=== PATIENT | male | born 1945 | race Caucasian/White ===

== ENCOUNTER 2023-01-06 07:26 | Inpatient (IN) ==
--- NOTE | 2023-01-06 07:39 | Emergency Department Note ---
Impression & Plan Hyperkalemia, Left hemiparesis, Acute renal failure, High anion gap metabolic acidosis, Aspiration pneumonia ED Provider Note NAME: LAURIE VANEGAS AGE: 77 SEX: M : 1945 ARRIVES VIA: Ambulance INFORMANT: Patient, ED PROVIDER(S): Karthikeyan Tompkins MD CHIEF COMPLAINT: Change in behavior, low blood sugar, vomiting MEDICAL DECISION MAKING: Patient presents with more aggressive behavior and there was concerned about some lower blood sugar. Patient was seen within the last 24 hours. IV was established and blood work is obtained. Patient did have a CT of the abdomen pelvis lumbar spine CT head obtained. The patient did have 800 cc of urinary retention Astudillo catheter was placed urinalysis was sent. Patient's initial kidney function with a creat of 12 with potassium 6.7. The patient was ordered a repeat but the patient's potassium was treated given the patient's significant kidney dysfunction. Patient was initially ordered 500 cc bolus, albuterol treatment, 2 g of calcium, as well as 5 units of insulin IV dex trose. Patient did have 1900 out of his Astudillo catheter initially. Patient does have a white count of 14 with mild anemia hemoglobin 11. The patient's blood work does show a lower bicarb as well as increased anion gap. The patient was ordered 150 mEq of bicarb and D5 to be given at 150 cc an hour. Patient was noted to be hypocalcemic. Procalcitonin was elevated and the patient was noted to have some bibasilar opacities seen on CT abdomen pelvis. Patient was ordered Zosyn as well as a MRSA swab. I did speak the on-call hospitalist service Dr. Edwards and the patient was admitted to the medicine service CT head shows no acute issues just old infarcts. Critical Care: I have personally spent 77 minutes of critical care time in direct management of this patient. This includes bedside care, interpretation of diagnostic studies, and testing, discussion with consultants, patient, and family members, and other require inpatient management activities. This 77 minutes is in excess of all separately billable procedures. Prior /Outside records reviewed: I reviewed the patient's outpatient facesheet as well as medication list Differential diagnosis: Infection, dehydration, metabolic abnormality, hypo/hyperglycemia, electrolyte imbalance, anemia, UTI, pneumonia, thyroid dysfunction among others were considered. Diagnostics, as interpreted by me: ECG: Normal sinus rhythm, rate of 88, normal intervals, right axis deviation, T wave inversion in V2. No ST elevations. Cardiac monitoring: An order was placed for continuous cardiac monitoring. The monitor shows a rate of 87 with sinus rhythm. Patient was placed on pulse oximetry Medical decision rules: Curb 65 score Imaging studies: See below I informally reviewed the patient's CT noncontrast of the head which does not show any IV obvious ICH. 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 HPI: Patient presents from home. History may be limited given the patient's history of dementia. The patient states over the last week he has noticed some increasing discomfort when he tries to get up and out of bed this morning has some back pain above his hips as well as in his ankles. No reported falls or trauma. Nursing report states that the patient had been seen in the last 24 hours for some hypoglycemia. No reported hypoglycemic events since discharge. There was concerned the patient may have aspirated after an episode of vomiting which may have contained blood. Patient denies any head or neck pain no chest pain. The patient has had nonproductive cough per patient. Patient has had issues with going to the bathroom both urinating and defecating. Patient states he has not done much of either recently. Patient denies any lower extremity numbness. PAST MEDICAL HISTORY: Dementia, constipation, hypertension, hyperlipidemia, depression, type 2 diabetes, hearing loss, hyperaldosteronism, history of CVA, hemiplegia and hemiparesis, dysphagia, GERD, vascular dementia PAST SURGICAL HISTORY: See Below SOCIAL HISTORY: See Below HOME MEDICATIONS: I reviewed the patient's home medications which do include Seroquel, Lexapro, Depakote, Vistaril, atorvastatin, Plavix, iron supplements, Aldactone, aspirin, Protonix, Tylenol, Dulcolax, ProAir, milk of magnesia, glucagon as needed, Tylenol as needed. ALLERGIES: See Below VITALS: See Below PHYSICAL EXAMINATION: GENERAL: NAD, non-toxic. EYE EXAM: Normal conjunctiva. PERRL, no anisocoria and EOM's grossly intact w/o pain. OROPHARYNX: Moist mucus membranes, grossly normal dentition. NECK: Supple, no nuchal rigidity, no adenopathy, non-tender. No signs of meningismus. FROM of the neck with good chin to chest and neck extension. No stridor. LUNGS: Clear to auscultation. Normal chest wall mechanics. HEART: NSR, no MRG. ABDOMEN: Abdomen soft, non-tender, no masses, no rebound or guarding. BACK: No CVA TTP. SKIN: No rashes and no bruising. UPPER EXTREMITIES: Upper extremities are grossly normal. LOWER EXTREMITIES: Grossly normal, no edema. NEURO EXAM: A&O x3, cranial nerves II-XII grossly intact, normal speech, moves all 4 extremities. Past Med/Surg History Medical History Aspiration pneumonia Social History Smoking Status: Unknown if ever smoked Hx Alcohol Use: No Hx Substance Use: No Preferred Language: Lebanese Communication Ability Comment: pt has altered mental status Cotton Ball Bagger Required: No Beliefs That Will Affect Care: None Current Living Situation: [facility] Feels Safe at Home: Yes Safety Concerns: Feels Safe At This Time Assistive Devices Comment: unknown Allergies Allergies Allergy/AdvReac Type Severity Reaction Status Date / Time No Known Allergies Allergy Verified 01/06/23 08:59 Home Meds Home Medications Medication Instructions Recorded Confirmed Insta-Glucose See Rx Instructions .Route .COMPLEX 01/06/23 01/06/23 Milk Of Magnesia Susp 1200mg/15ml See Rx Instructions .Route .COMPLEX 01/06/23 01/06/23 acetaminophen 325 mg tablet 650 mg PO Q6H PRN Mild Pain (Scale 01/06/23 01/06/23 Score 1-4) acetaminophen 325 mg tablet 650 mg PO Q6H PRN elevated temp 01/06/23 01/06/23 albuterol sulfate 90 mcg/actuation 2 puff inhalation Q6H PRN 01/06/23 01/06/23 aerosol inhaler shortness of breath aspirin 81 mg tablet,delayed 81 mg PO DAILY 01/06/23 01/06/23 release atorvastatin 20 mg tablet 20 mg PO DAILY 01/06/23 01/06/23 bisacodyl 10 mg rectal suppository See Rx Instructions .Route 01/06/23 01/06/23 .COMPLEX PRN Constipation clopidogrel 75 mg tablet 75 mg PO DAILY 01/06/23 01/06/23 divalproex 125 mg tablet,delayed 125 mg PO TID 01/06/23 01/06/23 release escitalopram oxalate 10 mg tablet 10 mg PO DAILY 01/06/23 01/06/23 ferrous sulfate 325 mg (65 mg 325 mg PO QAM 01/06/23 01/06/23 iron) tablet glucagon HCl 1 mg solution for See Rx Instructions .Route .COMPLEX 01/06/23 01/06/23 injection (Glucagon (HCl) Emergency Kit) glucagon HCl 1 mg solution for See Rx Instructions .Route .COMPLEX 01/06/23 01/06/23 injection (Glucagon (HCl) Emergency Kit) hydroxyzine pamoate 25 mg capsule 50 mg PO Q24H PRN Anxiety 01/06/23 01/06/23 pantoprazole 40 mg tablet,delayed 40 mg PO BID 01/06/23 01/06/23 release quetiapine 25 mg tablet 100 mg PO HS 01/06/23 01/06/23 quetiapine 50 mg tablet 50 mg PO HS 01/06/23 01/06/23 sodium phosphates 19 gram-7 See Rx Instructions .Route .COMPLEX 01/06/23 01/06/23 gram/118 mL enema (Enema) spironolactone 25 mg tablet 25 mg PO DAILY 01/06/23 01/06/23 Results & Data (ED) Vital Signs Vital Signs - 24 hr 01/06/23 07:36 01/06/23 07:40 01/06/23 08:05 Temperature 36.6 C Temperature Source Oral Pulse Rate 85 86 Pulse Rate [Apical] Respiratory Rate 20 Respiratory Effort / Characteristics Non-Labored Respiratory Depth Normal Respiratory Pattern Regular Blood Pressure 151/80 H Blood Pressure [Right Arm] Blood Pressure Mean 103 Blood Pressure Mean [Right Arm] Pulse Oximetry 92 92 Oxygen Delivery Method Room Air Room Air Sepsis Recent Fever Within 48 Hours No Sepsis New/Unexplained Change in Mental Status No Sepsis Action Taken by Nursing No Action Required 01/06/23 08:40 01/06/23 08:55 01/06/23 10:05 Temperature Temperature Source Pulse Rate Pulse Rate [Apical] 88 83 91 H Respiratory Rate 18 20 18 Respiratory Effort / Characteristics Non-Labored Respiratory Depth Deep Deep Normal Respiratory Pattern Regular Regular Regular Blood Pressure Blood Pressure [Right Arm] 90/57 L 120/60 103/61 Blood Pressure Mean Blood Pressure Mean [Right Arm] 68 80 75 Pulse Oximetry 91 99 92 Oxygen Delivery Method Room Air Nebulizer Room Air Sepsis Recent Fever Within 48 Hours Sepsis New/Unexplained Change in Mental Status Sepsis Action Taken by [facility] Medications Current Medication List: was personally reviewed by me Laboratory Data Attestation: I reviewed the patient's lab results. 01/06/23 07:41 01/06/23 07:41 Lab Results 01/06/23 01/06/23 01/06/23 Range/Units 07:38 07:41 07:41 WBC 14.02 H (4.8-10.8) K/ul RBC 4.19 L (4.70-6.10) M/uL Hgb 11.6 L (14.0-18.0) g/dl Hct 32.9 L (42.0-52.0) % MCV 78.5 L (80.0-100.0) fL MCH 27.7 (25.0-34.0) pg MCHC 35.3 (32.0-36.0) g/dL RDW Std Deviation 45.3 (36.4-46.3) fL RDW Coeff of Edilia 15.9 H (11.5-14.5) % Plt Count 229 (130-400) K/uL MPV 10.5 (9.4-12.4) fL Immature Gran % (Auto) 0.6 % Neut % (Auto) 90.3 % Lymph % (Auto) 1.8 % Parker % (Auto) 6.9 % Eos % (Auto) 0.3 % Baso % (Auto) 0.1 % Neut # (Auto) 12.67 H (1.40-6.50) K/uL Lymph # (Auto) 0.25 L (1.20-3.40) K/uL Parker # (Auto) 0.97 H (0.11-0.59) K/uL Eos # (Auto) 0.04 (0.00-0.50) K/uL Baso # (Auto) 0.01 (0.00-0.20) K/uL Immature Gran # (Auto) 0.08 (0.01-0.20) K/uL Polychromasia 1+ Echinocytes 3+ VBG pH (7.36-7.41) VBG pCO2 (38-50) mmHg VBG pO2 mmHg VBG HCO3 mmol/L VBG O2 Saturation % VBG Base Excess mEq/L Sodium 131 L (136-145) mmol/L Potassium 6.7 H* (3.5-5.1) mmol/L Chloride 98 (98-107) mmol/L Carbon Dioxide 13 L (21-32) mmol/L Anion Gap 20 H (3-11) BUN 177 H (6-23) mg/dl Creatinine 12.39 H* (0.6-1.4) mg/dl Est Cr Clr Drug Dosing Not Reportable Est GFR ( Amer) 4.0 ml/min Est GFR (Non-Af Amer) 3.4 ml/min BUN/Creatinine Ratio 14.3 (10-20) Glucose 76 (70-99(Fasting)) mg/dl POC Glucose 84 (70-99) mg/dl Lactate (0.4-2.0) mmol/L Calcium 7.4 L (8.6-10.3) mg/dl Phosphorus (2.5-4.9) mg/dl Magnesium (1.7-2.4) mg/dl Total Bilirubin 0.3 (0.2-1.0) mg/dl AST 24 (13-39) U/L ALT 20 (7-52) U/L Alkaline Phosphatase 58 (34-104) U/L Total Protein 5.9 L (6.0-8.3) gm/dl Albumin 3.0 L (3.4-5.0) gm/dl Globulin 2.9 (2.5-4.0) gm/dl Albumin/Globulin Ratio 1.0 (0.9-2) Lipase 53 (11-82) U/L Procalcitonin (0-0.5) ng/ml Urine Color Urine Appearance (Clear) Urine pH (4.5-7.5) Ur Specific [place] (1.000-1.030) Urine Protein (Negative) Urine Glucose (UA) (Negative) Urine Ketones (Negative) Urine Blood (Negative) Urine Nitrite (Negative) Urine Bilirubin (Negative) Urine Urobilinogen (Negative) Ur Leukocyte Esterase (Negative) Urine WBC (Auto) (0-5) /hpf Urine RBC (Auto) (0-4) /hpf U Hyaline Cast (Auto) (0-5) /lpf U Epithel Cells (Auto) (0-5) /lpf Urine Bacteria (Auto) (Negative) Nasal Screen MRSA (PCR) (Negative) Adenovirus (PCR) (NotDetected) B. pertussis DNA (PCR) (NotDetected) B.parapertussis DNA PCR (NotDetected) C. pneumoniae DNA (PCR) (NotDetected) Coronavirus OC43 (PCR) (NotDetected) Coronavirus HKU1 (PCR) (NotDetected) Coronavirus 229E (PCR) (NotDetected) SARS-CoV-2 (PCR) (NotDetected) Coronavirus NL63 (PCR) (NotDetected) Human Metapneumovir PCR (NotDetected) Influenza Type A (PCR) (NotDetected) Influenza Type B (PCR) (NotDetected) M. pneumoniae (PCR) (NotDetected) Parainfluenza 1 (PCR) (NotDetected) Parainfluenza 2 (PCR) (NotDetected) Parainfluenza 3 (PCR) (NotDetected) Parainfluenza 4 (PCR) (NotDetected) RSV (PCR) (NotDetected) Entero/Rhino (PCR) (NotDetected) 01/06/23 01/06/23 01/06/23 Range/Units 07:41 07:41 07:41 WBC (4.8-10.8) K/ul RBC (4.70-6.10) M/uL Hgb (14.0-18.0) g/dl Hct (42.0-52.0) % MCV (80.0-100.0) fL MCH (25.0-34.0) pg MCHC (32.0-36.0) g/dL RDW Std Deviation (36.4-46.3) fL RDW Coeff of Edilia (11.5-14.5) % Plt Count (130-400) K/uL MPV (9.4-12.4) fL Immature Gran % (Auto) % Neut % (Auto) % Lymph % (Auto) % Parker % (Auto) % Eos % (Auto) % Baso % (Auto) % Neut # (Auto) (1.40-6.50) K/uL Lymph # (Auto) (1.20-3.40) K/uL Parker # (Auto) (0.11-0.59) K/uL Eos # (Auto) (0.00-0.50) K/uL Baso # (Auto) (0.00-0.20) K/uL Immature Gran # (Auto) (0.01-0.20) K/uL Polychromasia Echinocytes VBG pH (7.36-7.41) VBG pCO2 (38-50) mmHg VBG pO2 mmHg VBG HCO3 mmol/L VBG O2 Saturation % VBG Base Excess mEq/L Sodium 131 L (136-145) mmol/L Potassium TNP (3.5-5.1) mmol/L Chloride 98 (98-107) mmol/L Carbon Dioxide 13 L (21-32) mmol/L Anion Gap 20 H (3-11) BUN 179 H (6-23) mg/dl Creatinine 12.02 H* D (0.6-1.4) mg/dl Est Cr Clr Drug Dosing Not Reportable Est GFR ( Amer) 4.1 ml/min Est GFR (Non-Af Amer) 3.6 ml/min BUN/Creatinine Ratio 14.9 (10-20) Glucose 77 (70-99(Fasting)) mg/dl POC Glucose (70-99) mg/dl Lactate (0.4-2.0) mmol/L Calcium 7.4 L (8.6-10.3) mg/dl Phosphorus (2.5-4.9) mg/dl Magnesium (1.7-2.4) mg/dl Total Bilirubin 0.3 (0.2-1.0) mg/dl AST TNP (13-39) U/L ALT 21 (7-52) U/L Alkaline Phosphatase 55 (34-104) U/L Total Protein 6.0 (6.0-8.3) gm/dl Albumin 2.9 L (3.4-5.0) gm/dl Globulin 3.1 (2.5-4.0) gm/dl Albumin/Globulin Ratio 0.9 (0.9-2) Lipase (11-82) U/L Procalcitonin 5.56 H (0-0.5) ng/ml Urine Color Urine Appearance (Clear) Urine pH (4.5-7.5) Ur Specific [place] (1.000-1.030) Urine Protein (Negative) Urine Glucose (UA) (Negative) Urine Ketones (Negative) Urine Blood (Negative) Urine Nitrite (Negative) Urine Bilirubin (Negative) Urine Urobilinogen (Negative) Ur Leukocyte Esterase (Negative) Urine WBC (Auto) (0-5) /hpf Urine RBC (Auto) (0-4) /hpf U Hyaline Cast (Auto) (0-5) /lpf U Epithel Cells (Auto) (0-5) /lpf Urine Bacteria (Auto) (Negative) Nasal Screen MRSA (PCR) (Negative) Adenovirus (PCR) Not Detected (NotDetected) B. pertussis DNA (PCR) Not Detected (NotDetected) B.parapertussis DNA PCR Not Detected (NotDetected) C. pneumoniae DNA (PCR) Not Detected (NotDetected) Coronavirus OC43 (PCR) Not Detected (NotDetected) Coronavirus HKU1 (PCR) Not Detected (NotDetected) Coronavirus 229E (PCR) Not Detected (NotDetected) SARS-CoV-2 (PCR) Not Detected (NotDetected) Coronavirus NL63 (PCR) Not Detected (NotDetected) Human Metapneumovir PCR Not Detected (NotDetected) Influenza Type A (PCR) Not Detected (NotDetected) Influenza Type B (PCR) Not Detected (NotDetected) M. pneumoniae (PCR) Not Detected (NotDetected) Parainfluenza 1 (PCR) Not Detected (NotDetected) Parainfluenza 2 (PCR) Not Detected (NotDetected) Parainfluenza 3 (PCR) Not Detected (NotDetected) Parainfluenza 4 (PCR) Not Detected (NotDetected) RSV (PCR) Not Detected (NotDetected) Entero/Rhino (PCR) Not Detected (NotDetected) 01/06/23 01/06/23 01/06/23 Range/Units 08:04 10:03 10:23 WBC (4.8-10.8) K/ul RBC (4.70-6.10) M/uL Hgb (14.0-18.0) g/dl Hct (42.0-52.0) % MCV (80.0-100.0) fL MCH (25.0-34.0) pg MCHC (32.0-36.0) g/dL RDW Std Deviation (36.4-46.3) fL RDW Coeff of Edilia (11.5-14.5) % Plt Count (130-400) K/uL MPV (9.4-12.4) fL Immature Gran % (Auto) % Neut % (Auto) % Lymph % (Auto) % Parker % (Auto) % Eos % (Auto) % Baso % (Auto) % Neut # (Auto) (1.40-6.50) K/uL Lymph # (Auto) (1.20-3.40) K/uL Parker # (Auto) (0.11-0.59) K/uL Eos # (Auto) (0.00-0.50) K/uL Baso # (Auto) (0.00-0.20) K/uL Immature Gran # (Auto) (0.01-0.20) K/uL Polychromasia Echinocytes VBG pH (7.36-7.41) VBG pCO2 (38-50) mmHg VBG pO2 mmHg VBG HCO3 mmol/L VBG O2 Saturation % VBG Base Excess mEq/L Sodium (136-145) mmol/L Potassium (3.5-5.1) mmol/L Chloride (98-107) mmol/L Carbon Dioxide (21-32) mmol/L Anion Gap (3-11) BUN (6-23) mg/dl Creatinine (0.6-1.4) mg/dl Est Cr Clr Drug Dosing Est GFR ( Amer) ml/min Est GFR (Non-Af Amer) ml/min BUN/Creatinine Ratio (10-20) Glucose (70-99(Fasting)) mg/dl POC Glucose 82 (70-99) mg/dl Lactate (0.4-2.0) mmol/L Calcium (8.6-10.3) mg/dl Phosphorus (2.5-4.9) mg/dl Magnesium (1.7-2.4) mg/dl Total Bilirubin (0.2-1.0) mg/dl AST (13-39) U/L ALT (7-52) U/L Alkaline Phosphatase (34-104) U/L Total Protein (6.0-8.3) gm/dl Albumin (3.4-5.0) gm/dl Globulin (2.5-4.0) gm/dl Albumin/Globulin Ratio (0.9-2) Lipase (11-82) U/L Procalcitonin (0-0.5) ng/ml Urine Color Yellow Urine Appearance Clear (Clear) Urine pH 5.5 (4.5-7.5) Ur Specific [place] 1.014 (1.000-1.030) Urine Protein Negative (Negative) Urine Glucose (UA) Negative (Negative) Urine Ketones Negative (Negative) Urine Blood 3+ H (Negative) Urine Nitrite Negative (Negative) Urine Bilirubin Negative (Negative) Urine Urobilinogen Negative (Negative) Ur Leukocyte Esterase Negative (Negative) Urine WBC (Auto) 0 (0-5) /hpf Urine RBC (Auto) 10-30 H (0-4) /hpf U Hyaline Cast (Auto) 0 (0-5) /lpf U Epithel Cells (Auto) 0-5 (0-5) /lpf Urine Bacteria (Auto) Negative (Negative) Nasal Screen MRSA (PCR) Positive A (Negative) Adenovirus (PCR) (NotDetected) B. pertussis DNA (PCR) (NotDetected) B.parapertussis DNA PCR (NotDetected) C. pneumoniae DNA (PCR) (NotDetected) Coronavirus OC43 (PCR) (NotDetected) Coronavirus HKU1 (PCR) (NotDetected) Coronavirus 229E (PCR) (NotDetected) SARS-CoV-2 (PCR) (NotDetected) Coronavirus NL63 (PCR) (NotDetected) Human Metapneumovir PCR (NotDetected) Influenza Type A (PCR) (NotDetected) Influenza Type B (PCR) (NotDetected) M. pneumoniae (PCR) (NotDetected) Parainfluenza 1 (PCR) (NotDetected) Parainfluenza 2 (PCR) (NotDetected) Parainfluenza 3 (PCR) (NotDetected) Parainfluenza 4 (PCR) (NotDetected) RSV (PCR) (NotDetected) Entero/Rhino (PCR) (NotDetected) 01/06/23 01/06/23 01/06/23 Range/Units 11:10 11:10 11:10 WBC (4.8-10.8) K/ul RBC (4.70-6.10) M/uL Hgb (14.0-18.0) g/dl Hct (42.0-52.0) % MCV (80.0-100.0) fL MCH (25.0-34.0) pg MCHC (32.0-36.0) g/dL RDW Std Deviation (36.4-46.3) fL RDW Coeff of Edilia (11.5-14.5) % Plt Count (130-400) K/uL MPV (9.4-12.4) fL Immature Gran % (Auto) % Neut % (Auto) % Lymph % (Auto) % Parker % (Auto) % Eos % (Auto) % Baso % (Auto) % Neut # (Auto) (1.40-6.50) K/uL Lymph # (Auto) (1.20-3.40) K/uL Parker # (Auto) (0.11-0.59) K/uL Eos # (Auto) (0.00-0.50) K/uL Baso # (Auto) (0.00-0.20) K/uL Immature Gran # (Auto) (0.01-0.20) K/uL Polychromasia Echinocytes VBG pH 7.22 L (7.36-7.41) VBG pCO2 39 (38-50) mmHg VBG pO2 38 mmHg VBG HCO3 16 mmol/L VBG O2 Saturation < 60.0 % VBG Base Excess -11.0 mEq/L Sodium 134 L (136-145) mmol/L Potassium Cancelled TNP (3.5-5.1) mmol/L Chloride 102 (98-107) mmol/L Carbon Dioxide 16 L (21-32) mmol/L Anion Gap 16 H (3-11) BUN 163 H (6-23) mg/dl Creatinine 10.05 H* D (0.6-1.4) mg/dl Est Cr Clr Drug Dosing Not Reportable Est GFR ( Amer) 5.1 ml/min Est GFR (Non-Af Amer) 4.4 ml/min BUN/Creatinine Ratio 16.2 (10-20) Glucose 88 (70-99(Fasting)) mg/dl POC Glucose (70-99) mg/dl Lactate (0.4-2.0) mmol/L Calcium 7.7 L (8.6-10.3) mg/dl Phosphorus 6.4 H (2.5-4.9) mg/dl Magnesium 2.1 (1.7-2.4) mg/dl Total Bilirubin 0.4 (0.2-1.0) mg/dl AST Cancelled TNP (13-39) U/L ALT 20 (7-52) U/L Alkaline Phosphatase 57 (34-104) U/L Total Protein 5.4 L (6.0-8.3) gm/dl Albumin 2.8 L (3.4-5.0) gm/dl Globulin 2.6 (2.5-4.0) gm/dl Albumin/Globulin Ratio 1.1 (0.9-2) Lipase (11-82) U/L Procalcitonin (0-0.5) ng/ml Urine Color Urine Appearance (Clear) Urine pH (4.5-7.5) Ur Specific [place] (1.000-1.030) Urine Protein (Negative) Urine Glucose (UA) (Negative) Urine Ketones (Negative) Urine Blood (Negative) Urine Nitrite (Negative) Urine Bilirubin (Negative) Urine Urobilinogen (Negative) Ur Leukocyte Esterase (Negative) Urine WBC (Auto) (0-5) /hpf Urine RBC (Auto) (0-4) /hpf U Hyaline Cast (Auto) (0-5) /lpf U Epithel Cells (Auto) (0-5) /lpf Urine Bacteria (Auto) (Negative) Nasal Screen MRSA (PCR) (Negative) Adenovirus (PCR) (NotDetected) B. pertussis DNA (PCR) (NotDetected) B.parapertussis DNA PCR (NotDetected) C. pneumoniae DNA (PCR) (NotDetected) Coronavirus OC43 (PCR) (NotDetected) Coronavirus HKU1 (PCR) (NotDetected) Coronavirus 229E (PCR) (NotDetected) SARS-CoV-2 (PCR) (NotDetected) Coronavirus NL63 (PCR) (NotDetected) Human Metapneumovir PCR (NotDetected) Influenza Type A (PCR) (NotDetected) Influenza Type B (PCR) (NotDetected) M. pneumoniae (PCR) (NotDetected) Parainfluenza 1 (PCR) (NotDetected) Parainfluenza 2 (PCR) (NotDetected) Parainfluenza 3 (PCR) (NotDetected) Parainfluenza 4 (PCR) (NotDetected) RSV (PCR) (NotDetected) Entero/Rhino (PCR) (NotDetected) 01/06/23 Range/Units 11:10 WBC (4.8-10.8) K/ul RBC (4.70-6.10) M/uL Hgb (14.0-18.0) g/dl Hct (42.0-52.0) % MCV (80.0-100.0) fL MCH (25.0-34.0) pg MCHC (32.0-36.0) g/dL RDW Std Deviation (36.4-46.3) fL RDW Coeff of Edilia (11.5-14.5) % Plt Count (130-400) K/uL MPV (9.4-12.4) fL Immature Gran % (Auto) % Neut % (Auto) % Lymph % (Auto) % Parker % (Auto) % Eos % (Auto) % Baso % (Auto) % Neut # (Auto) (1.40-6.50) K/uL Lymph # (Auto) (1.20-3.40) K/uL Parker # (Auto) (0.11-0.59) K/uL Eos # (Auto) (0.00-0.50) K/uL Baso # (Auto) (0.00-0.20) K/uL Immature Gran # (Auto) (0.01-0.20) K/uL Polychromasia Echinocytes VBG pH (7.36-7.41) VBG pCO2 (38-50) mmHg VBG pO2 mmHg VBG HCO3 mmol/L VBG O2 Saturation % VBG Base Excess mEq/L Sodium (136-145) mmol/L Potassium (3.5-5.1) mmol/L Chloride (98-107) mmol/L Carbon Dioxide (21-32) mmol/L Anion Gap (3-11) BUN (6-23) mg/dl Creatinine (0.6-1.4) mg/dl Est Cr Clr Drug Dosing Est GFR ( Amer) ml/min Est GFR (Non-Af Amer) ml/min BUN/Creatinine Ratio (10-20) Glucose (70-99(Fasting)) mg/dl POC Glucose (70-99) mg/dl Lactate 2.3 H* (0.4-2.0) mmol/L Calcium (8.6-10.3) mg/dl Phosphorus (2.5-4.9) mg/dl Magnesium (1.7-2.4) mg/dl Total Bilirubin (0.2-1.0) mg/dl AST (13-39) U/L ALT (7-52) U/L Alkaline Phosphatase (34-104) U/L Total Protein (6.0-8.3) gm/dl Albumin (3.4-5.0) gm/dl Globulin (2.5-4.0) gm/dl Albumin/Globulin Ratio (0.9-2) Lipase (11-82) U/L Procalcitonin (0-0.5) ng/ml Urine Color Urine Appearance (Clear) Urine pH (4.5-7.5) Ur Specific [place] (1.000-1.030) Urine Protein (Negative) Urine Glucose (UA) (Negative) Urine Ketones (Negative) Urine Blood (Negative) Urine Nitrite (Negative) Urine Bilirubin (Negative) Urine Urobilinogen (Negative) Ur Leukocyte Esterase (Negative) Urine WBC (Auto) (0-5) /hpf Urine RBC (Auto) (0-4) /hpf U Hyaline Cast (Auto) (0-5) /lpf U Epithel Cells (Auto) (0-5) /lpf Urine Bacteria (Auto) (Negative) Nasal Screen MRSA (PCR) (Negative) Adenovirus (PCR) (NotDetected) B. pertussis DNA (PCR) (NotDetected) B.parapertussis DNA PCR (NotDetected) C. pneumoniae DNA (PCR) (NotDetected) Coronavirus OC43 (PCR) (NotDetected) Coronavirus HKU1 (PCR) (NotDetected) Coronavirus 229E (PCR) (NotDetected) SARS-CoV-2 (PCR) (NotDetected) Coronavirus NL63 (PCR) (NotDetected) Human Metapneumovir PCR (NotDetected) Influenza Type A (PCR) (NotDetected) Influenza Type B (PCR) (NotDetected) M. pneumoniae (PCR) (NotDetected) Parainfluenza 1 (PCR) (NotDetected) Parainfluenza 2 (PCR) (NotDetected) Parainfluenza 3 (PCR) (NotDetected) Parainfluenza 4 (PCR) (NotDetected) RSV (PCR) (NotDetected) Entero/Rhino (PCR) (NotDetected) Administered Medications Albuterol (Albuterol 0.5% Neb Soln 2.5 Mg/0.5 Ml Vial) 2.5 mg NEB Q6R [facility]; Protocol Stop: 02/05/23 12:59 Last Admin: 01/06/23 12:46 Dose: 2.5 mg Documented By: MIROSLAVA Divalproex Sodium (Divalproex Delay Release 125 Mg Tabec) 125 mg PO TID [facility] Stop: 02/05/23 13:59 Last Admin: 01/06/23 14:15 Dose: 125 mg Documented By: GRANT Sodium Bicarbonate 150 meq/ (Dextrose) 1,150 mls @ 150 mls/hr IV .[id number] [facility] Stop: 02/05/23 10:14 Last Admin: 01/06/23 11:08 Dose: 150 mls/hr Documented By: GRANT Vancomycin HCl 1,500 mg/ (Sodium Chloride) 530 mls @ 200 mls/hr IV NOW ONE Stop: 01/06/23 15:23 Last Admin: 01/06/23 13:12 Dose: 200 mls/hr Documented By: DE Insulin Aspart (Insulin Aspart Per Unit Charge) 0 units SC Q4 [facility] Stop: 02/05/23 11:29 Last Admin: 01/06/23 12:20 Dose: Not Given Documented By: GRANT Sodium Zirconium Cyclosilicate (Sodium Zirconium Cyclosilicate 10 Gm Packet) 10 gm PO TID [facility] Stop: 01/07/23 21:01 Last Admin: 01/06/23 14:15 Dose: 10 gm Documented By: Admin: 01/06/23 12:23 Dose: 10 gm Documented By: GRANT Discontinued Medications Albuterol (Albuterol 0.083% Nebu Soln 3 Ml Vial) 2.5 mg NEB NOW STA; Protocol Stop: 01/06/23 08:18 Last Admin: 01/06/23 08:43 Dose: 2.5 mg Documented By: GRANT Aspirin (Aspirin 81 Mg Ectab) 81 mg PO NOW STA Stop: 01/06/23 11:59 Last Admin: 01/06/23 12:23 Dose: 81 mg Documented By: GRANT Dextrose (Dextrose 50% 50 Ml Syringe) 50 ml IV NOW ONE Stop: 01/06/23 08:18 Last Admin: 01/06/23 08:43 Dose: 50 ml Documented By: GRANT Acetaminophen (Ofirmev) 1,000 mg in 100 mls @ 400 mls/hr IV NOW STA Stop: 01/06/23 07:59 Last Infusion: 01/06/23 08:44 Dose: 0 mls/hr Documented By: Admin: 01/06/23 08:07 Dose: 400 mls/hr Documented By: GRANT Calcium Gluconate () 1,000 mg in 60 mls @ 240 mls/hr IV Q15M ALEXIA Stop: 01/06/23 08:59 Last Infusion: 01/06/23 09:59 Dose: 0 mls/hr Documented By: Admin: 01/06/23 09:00 Dose: 240 mls/hr Documented By: Infusion: 01/06/23 08:58 Dose: 240 mls/hr Documented By: Admin: 01/06/23 08:43 Dose: 240 mls/hr Documented By: GRANT Sodium Chloride (Nss 1000ml) 500 mls @ 999 mls/hr IV .Q31M ONE Stop: 01/06/23 08:47 Last Infusion: 01/06/23 10:00 Dose: 0 mls/hr Documented By: Admin: 01/06/23 08:41 Dose: 999 mls/hr Documented By: GRANT Sodium Chloride (Nss 1000ml) 500 mls @ 999 mls/hr IV .Q31M ONE Stop: 01/06/23 09:37 Last Infusion: 01/06/23 10:53 Dose: 0 mls/hr Documented By: Admin: 01/06/23 10:08 Dose: 999 mls/hr Documented By: GRANT Piperacillin Sod/Tazobactam Sod (Zosyn) 4.5 gm in 120 mls @ 240 mls/hr IV NOW ONE Stop: 01/06/23 10:00 Last Infusion: 01/06/23 10:53 Dose: 0 mls/hr Documented By: Admin: 01/06/23 10:21 Dose: 240 mls/hr Documented By: GRANT Pantoprazole Sodium 40 mg/ (Syringe) 10 mls @ 5 mls/min IV NOW ONE Stop: 01/06/23 11:42 Last Admin: 01/06/23 12:23 Dose: 5 mls/min Documented By: GRANT Insulin Human Regular (Novolin-R Insulin Per Unit Charge) 5 units IV NOW STA Stop: 01/06/23 08:18 Last Admin: 01/06/23 08:50 Dose: 5 units Documented By: GRANT Co-signed By: CORNELIA Miscellaneous (Stat Iv) 1 each N/A NOW STA Stop: 01/06/23 10:08 Last Admin: 01/06/23 10:11 Dose: 1 each Documented By: GRANT Ondansetron HCl (Ondansetron Inj 2 Mg/Ml 2 Ml Vial) 4 mg IV NOW STA Stop: 01/06/23 07:46 Last Admin: 01/06/23 08:07 Dose: 4 mg Documented By: GRANT Imaging Data Radiologist's Impression: Chest X-Ray 01/06/23 07:45 XR chest 1V portable HISTORY: cough COMPARISON: None. FINDINGS: There are low lung volumes. No pneumothorax. No pleural effusions. The cardiac silhouette is top normal in size. The right lung is essentially clear. There are patchy left basilar densities noted. IMPRESSION: Patchy left basilar densities which may represent atelectasis or pneumonia. This will be better appreciated on the same day abdomen and pelvis CT. ACT 112: Negative or not required by law. Electronically signed by: Marcus Cox M.D. 01/06/2023 8:[address] 01/06/23 07:[address] DOSE: HISTORY: back pain TECHNIQUE: Multiaxial CT images of the lumbar spine were performed and reformatted in the sagittal and coronal plane without the use of contrast. A dose lowering technique was utilized adhering to the principles of ALARA. COMPARISON: None. FINDINGS: No fracture or subluxation within the lumbar spine. There is mild dextroscoliosis. There is moderate to severe disc space narrowing throughout the lumbar spine most pronounced at the L4-5 level. Moderate facet degenerative changes within the lower lumbar spine. Visualized sacrum is intact. No high- grade central canal stenosis by CT technique. Paravertebral soft tissues are unremarkable. IMPRESSION: No fracture or subluxation within the lumbar spine. ACT 112: Negative or not required by law. Electronically signed by: Marcus Cox M.D. 01/06/2023 11:[address] 01/06/23 08:[address] DOSE: HISTORY: Altered mental status. agitation TECHNIQUE: Multiaxial CT images of the head were performed without the use of intravenous contrast. Automated exposure control was utilized for this study. A dose lowering technique was utilized adhering to the principles of ALARA. Comparison: None. Findings: The paranasal sinuses and mastoid air cells are clear. The calvarium and skull base are intact. Mild motion artifact. 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 Additional focal areas of encephalitis within the occipital lobes consistent with old infarcts. There are old lacunar infarcts within the cerebellar hemispheres, right thalamus, left basal ganglia. No definite acute infarct is identified. No mass, hematoma, midline shift. Mild atrophy and microvascular ischemic changes are noted. 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 No definite acute intracranial abnormality. ACT 112: Negative or not required by law. Electronically signed by: Marcus Cox M.D. 01/06/2023 9:42 AM Abdomen/Pelvis CT 01/06/23 08:[address] WITHOUT CONTRAST CT DOSE: 1549.16 mGy.cm HISTORY: Abdominal distention. TECHNIQUE: Multiaxial CT images of the abdomen and pelvis were performed without contrast. A dose lowering technique was utilized adhering to the principles of ALARA. COMPARISON STUDY: None. FINDINGS: Patchy areas of airspace consolidation seen within the bilateral lower lobes and a few small groundglass airspace opacities within the right middle lobe. This is most pronounced within the left lower lobe. There is mild motion artifact. There are small bilateral pleural effusions. There is a small hiatus hernia with thickening of the distal esophagus. No pneumoperitoneum. No pneumat osis. No acute fractures identified. Coronary artery calcifications are noted. Bilateral gynecomastia is present. Small fat-containing umbilical hernia. Mild body wall edema. Slight asymmetric thickening within the left iliacus muscle best seen image 231. This is likely the normal musculature. A small intramuscular hematoma is considered less likely but not entirely excluded. The stomach is mildly distended and filled with gas and fluid. Pneumobilia is present with gas in the nondistended gallbladder. The unenhanced liver, spleen, pancreas, and adrenal glands are unremarkable. No renal or ureteral stones. Mild fullness within the bilateral renal collecting systems without carlos hydronephrosis. There is mild bilateral perinephric edema. Calcified plaque within the normal caliber abdominal aorta. No retroperitoneal or pelvic lymphadenopathy. Trace ascites noted within the pelvis. The bladder is decompressed by a Astudillo catheter. The prostate gland is enlarged. There is suboptimal evaluation for bowel pathology due to the lack of intravenous and oral contrast. However, there is no definite bowel wall thickening or obstruction. Normal appendix. Colonic diverticulosis. No evidence for acute diverticulitis. IMPRESSION: 1. Multifocal bilateral airspace opacities with small bilateral pleural effusions. This likely represents a pneumonia and could be due to aspiration. 2. Small hiatus hernia with thickening of the distal esophagus suggestive of a nonspecific esophagitis. 3. The stomach is mildly distended. No evidence for gastric outlet obstruction. 4. No definite bowel wall thickening or obstruction. 5. Mild fullness within the bilateral renal collecting system without carlos hydr onephrosis. The bladder is decompressed by a Astudillo catheter. 6. Mild asymmetric thickening of the left iliacus muscle and comparison to the right. This likely represents the normal musculature. A small intramuscular hematoma is considered less likely but not entirely excluded. 7. Mild edematous change. 8. Additional findings as described above. ACT 112: Negative or not required by law. Electronically signed by: Marcus Cox M.D. 01/06/2023 11:00 AM Discharge Plan Visit Data Chief Complaint: Vomiting ED Provider: Karthikeyan Tompkins Discharge Problem: Hyperkalemia, Left hemiparesis, Acute renal failure, High anion gap metabolic acidosis, Aspiration pneumonia Patient Disposition: Against Medical Advice Discharge Instructions Interventions: ED Discharge Assessment Last Done: 01/06/23 12:23
[2023-01-06] MEDS ORDERED: ONDANSETRON INJ 2 MG/ML 2 ML VIAL IV STA (07:45)
[2023-01-06] MEDS ORDERED: ACETAMINOPHEN 1,000 MG/100 ML VIAL IV STA (07:45)
--- NOTE | 2023-01-06 08:14 | XRay Report ---
XR chest 1V portable HISTORY: cough COMPARISON: None. FINDINGS: There are low lung volumes. No pneumothorax. No pleural effusions. The cardiac silhouette i s top normal in size. The right lung is essentially clear. There are patchy left basilar densities no claritza. IMPRESSION: Patchy left basilar densities which may represent atelectasis or pneumonia. This will be better appre ciated on the same day abdomen and pelvis CT. ACT 112: Negative or not required by law. Electronically signed by: Marcus Cox M.D. 01/06/2023 8:13 AM
[2023-01-06 08:17] LABS: Alanine Aminotransferase 20 U/L (7-52); Alkaline Phosphatase 58 U/L (34-104); Anion Gap 20 (3-11); Aspartate Aminotransferase 24 U/L (13-39); Bilirubin,Total 0.3 mg/dl (0.2-1.0); Calcium 7.4 mg/dl (8.6-10.3); Carbon Dioxide 13 mmol/L (21-32); Chloride 98 mmol/L (98-107); Est GFR (Non-African American) 3.4 ml/min; Globulin 2.9 gm/dl (2.5-4.0); Glucose 76 mg/dl (70-99(Fasting)); Lipase 53 U/L (11-82); Potassium 6.7 mmol/L (3.5-5.1); Sodium 131 mmol/L (136-145); Total Protein 5.9 gm/dl (6.0-8.3)
[2023-01-06] MEDS ORDERED: NovoLIN-R INSULIN PER UNIT CHARGE IV STA (08:17)
[2023-01-06] MEDS ORDERED: DEXTROSE 50% 50 ML SYRINGE IV ONE (08:17)
[2023-01-06] MEDS ORDERED: SODIUM CHLORIDE 0.9% 500 ML IV ONE ×2 (08:17→09:07)
[2023-01-06] MEDS ORDERED: ALBUTEROL 0.083% NEBU SOLN 3 ML VIAL NEB STA (08:17)
[2023-01-06 08:21] LABS: Hematocrit (blood only) 32.9 % (42.0-52.0); Hemoglobin 11.6 g/dl (14.0-18.0); Mean Corpuscular Hemoglobin 27.7 pg (25.0-34.0); Mean Corpuscular Hgb Conc 35.3 g/dL (32.0-36.0); Mean Corpuscular Volume 78.5 fL (80.0-100.0); Mean Platelet Volume 10.5 fL (9.4-12.4); Platelet Count 229 K/uL (130-400); RDW Coefficient of Variation 15.9 % (11.5-14.5); RDW Standard Deviation 45.3 fL (36.4-46.3); Red Blood Count 4.19 M/uL (4.70-6.10); White Blood Count 14.02 K/ul (4.8-10.8)
[2023-01-06 08:23] LABS: Appearance Urine Clear (Clear); Bacteria Urine Automated Negative (Negative); Bilirubin Urine Negative (Negative); Blood Urine 3+ (Negative); Cast Urine Automated 0 /lpf (0-5); Color Urine Yellow; Epithelial Cell Urine Auto 0-5 /lpf (0-5); Glucose Urine UA Negative (Negative); Ketones Urine Negative (Negative); Leukocyte Esterase Urine Negative (Negative); Nitrite Urine Negative (Negative); Protein Urine Negative (Negative); Specific Gravity Urine 1.014 (1.000-1.030); Urobilinogen Urine Negative (Negative); WBC Urine Automated 0 /hpf (0-5); pH Urine 5.5 (4.5-7.5)
[2023-01-06 08:34] LABS: BUN Creatinine Ratio 14.3 (10-20); Blood Urea Nitrogen 177 mg/dl (6-23)
[2023-01-06] MEDS: CALCIUM GLUCONATE 1,000 MG/60 ML BAG IV SCH ×2 (08:43→09:00)
[2023-01-06 08:50] LABS: Alanine Aminotransferase 21 U/L (7-52); Albumin Globulin Ratio 0.9 (0.9-2); Albumin Level 2.9 gm/dl (3.4-5.0); Alkaline Phosphatase 55 U/L (34-104); Anion Gap 20 (3-11); Bilirubin,Total 0.3 mg/dl (0.2-1.0); Calcium 7.4 mg/dl (8.6-10.3); Carbon Dioxide 13 mmol/L (21-32); Chloride 98 mmol/L (98-107); Est GFR (African American) 4.1 ml/min; Est GFR (Non-African American) 3.6 ml/min; Globulin 3.1 gm/dl (2.5-4.0); Glucose 77 mg/dl (70-99(Fasting)); Sodium 131 mmol/L (136-145)
[2023-01-06 08:56] LABS: Basophils # (auto) 0.01 K/uL (0.00-0.20); Basophils % (auto) 0.1 %; Echinocytes 3+; Eosinophils # (auto) 0.04 K/uL (0.00-0.50); Eosinophils % (auto) 0.3 %; Immature Granulocytes # (auto) 0.08 K/uL (0.01-0.20); Immature Granulocytes % (auto) 0.6 %; Lymphocytes # (auto) 0.25 K/uL (1.20-3.40); Lymphocytes % (auto) 1.8 %; Monocytes # (auto) 0.97 K/uL (0.11-0.59); Monocytes % (auto) 6.9 %; Neutrophils # (auto) 12.67 K/uL (1.40-6.50); Neutrophils % (auto) 90.3 %; Polychromasia 1+
[2023-01-06 09:14] LABS: Adenovirus PCR Not Detected (NotDetected); Bordetella parapertussis PCR Not Detected (NotDetected); Bordetella pertussis PCR Not Detected (NotDetected); Chlamydia pneumoniae PCR Not Detected (NotDetected); Coronavirus 229E PCR Not Detected (NotDetected); Coronavirus CoV-2 (COVID19)PCR Not Detected (NotDetected); Coronavirus HKU1 PCR Not Detected (NotDetected); Coronavirus NL63 PCR Not Detected (NotDetected); Coronavirus OC43PCR Not Detected (NotDetected); Human Metapneumovirus PCR Not Detected (NotDetected); Influenza A PCR Not Detected (NotDetected); Influenza B PCR Not Detected (NotDetected); Mycoplasma pneumoniae PCR Not Detected (NotDetected); Parainfluenza Virus 1 PCR Not Detected (NotDetected); Parainfluenza Virus 2 PCR Not Detected (NotDetected); Parainfluenza Virus 3 PCR Not Detected (NotDetected); Parainfluenza Virus 4 PCR Not Detected (NotDetected); Respiratory Syncytial VirusPCR Not Detected (NotDetected); Rhinovirus/Enterovirus PCR Not Detected (NotDetected)
[2023-01-06] MEDS ORDERED: PIPERACILLIN/TAZOBACTAM 4.5 GM/120 ML BAG IV ONE (09:31)
--- NOTE | 2023-01-06 09:44 | CT Scan Report ---
HEAD CT NONCONTRAST CT DOSE: HISTORY: Altered mental status. agitation TECHNIQUE: Multiaxial CT images of the head were performed without the use of intravenous contrast. A utomated exposure control was utilized for this study. A dose lowering technique was utilized adheri ng to the principles of ALARA. Comparison: None. Findings: The paranasal sinuses and mastoid air cells are clear. The calvarium and skull base are int act. Mild motion artifact. Large area of encephalomalacia within the right cerebral hemisphere consis tent with an old MCA territory infarct. Additional focal areas of encephalitis within the occipital l obes consistent with old infarcts. There are old lacunar infarcts within the cerebellar hemispheres, right thalamus, left basal ganglia. No definite acute infarct is identified. No mass, hematoma, midli ne shift. Mild atrophy and microvascular ischemic changes are noted. 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 No definite acute intracranial abnormality. ACT 112: Negative or not required by law. Electronically signed by: Marcus Cox M.D. 01/06/2023 9:42 AM
[2023-01-06 09:58] LABS: BUN Creatinine Ratio 14.9 (10-20); Blood Urea Nitrogen 179 mg/dl (6-23)
[2023-01-06] MEDS ORDERED: STAT IV STA (10:07)
--- NOTE | 2023-01-06 10:20 | History & Physical Report ---
Date of Service January 06, 2023 Assessment & Plan (1) Altered mental status: Plan: -Admit to the PCU on tele/pulse oximetry -Patient is currently stable -At this time the etiology of the patient's AMS appears most consistent with obstructive uropathy as his cr is currently 12, patient has had approximately 1900 mL of urine output since kaba placement in the ED -Cannot rule out possible infection at this time with recent vomiting and possible aspiration, leukocytosis, and elevated procal -CT of the head was negative for acute findings, CT of the abd/pelvis without other signs of obstruction S/P kaba cath placement, dose show signs consistent with aspiration pneumonia -Leukocytosis and elevated procal could be falsely elevated due to acute renal failure -Patient has been adamant that he does not want recurrent labs draws/needles/procedures at this time. He does have a hx of dementia -Spoke to POA/Niece, patient would want dialysis if needed if distress from procedures/lab draws can be controlled -Continue kaba catheter and monitor intake/output q6h for now -S/P one dose of Zosyn in the ED, will continue Zosyn at this time to cover for possible infection/aspiration pneumonia -Hold chemical DVT PPX for now (2) Acute renal failure: Plan: -Cr currently 12 (no previous baseline), BUN of 179, K+ of 6.7 with sodium of 131 -Likely due to obstructive uropathy as he had significant urinary retention prior to kaba cath placement -CT of the abd/pelvis wo con shows Mild fullness within the bilateral renal collecting system without carlos hydronephrosis after kaba placement -Continue kaab placement for now, has had approximately 2L urine output since placement -Repeat CMP, mag, phos, and VBG are in process, continue to monitor BMP q4h for now -Continue to monitor intake/output q6h, monitor daily weight, -Will consult Nephrology to assist with evaluation and treatment -POA expresses that patient would want dialysis if fear/pain from needles/procedures can be controlled -Started on bicarb drip at 150 mL/hr, will continue for now -Renally dose medications and avoid nephrotoxic agents (3) Hyperkalemia: Plan: -Initial K+ elevated at 6.7 -Medical management initiated in the ED including: Calcium gluconate, IV insulin, albuterol -Likely due to his acute renal failure from obstructive uropathy and spironolactone use -No acute T-wave or QRS changes on ecg -Continue to manage medically for now -Monitor BMP q4h for now, monitor on tele -Nephrology consult placed (4) Aspiration pneumonia: Plan: -Noted on chest xray and CT of the abd/pelvis today -Recent vomiting episodes per [facility] staff -Stable on RA -Continue Zosyn with prolonged infusion time due to renal failure -Incentive spirometry, flutter therapy, prn albuterol -PRN O2 to keep sPo2 at or above 94% (5) High anion gap metabolic acidosis: Plan: -Initial AG of 20 with bicarb of 13 -Lactate ordered on admission is 2.3 -Likely due to his acute renal failure and elevated lactate -VBG pH on admission is 7.22 with pCO2 and pO2 WNL -Repeat AG of 16 with bicarb of 16, improving after kaba placement -Started on bicarb drip in the ED -Continue bicarb drip for now, continue to treat possible infection with zosyn -Monitor AG and bicarb q4h with repeat labs -Will follow repeat lactate in 2 hr (6) Hyponatremia: Plan: -Initially noted to be 131, improvement to 134 on repeat labs -Likely due to his acute renal failure and volume overload -Already improving with kaba placement -Continue to monitor on repeat labs (7) Esophagitis: Plan: -Noted on CT of the abd/pelvis -Patient is without discomfort -Will start 40 mg IV protonix daily for now with first dose on admission -Can convert to PO PPI when stable (8) Hx of arterial ischemic stroke: Plan: -Typically on aspirin and plavix -Will continue with Aspirin for now but hold plavix until we determine if he will need dialysis cath placed (9) Left hemiparesis: Plan: -At baseline -Bedrest (10) DM II (diabetes mellitus, type II), controlled: Plan: -Monitor BSG q4h, goal is 110-160 for now -Will start q4h CF of 50 for now with acute renal failure -Hold basal insulin for now with NPO status and ARF to avoid hypoglycemia -Adjust regimen as needed (11) HTN (hypertension): Plan: -Stable -Holding spironolactone with hyperkalemia and stable BP (12) Dementia: Plan: -Continue HS Seroquel and TID Depakote , renally dosed Plan The patient was discussed with Dr. Edwards at the time of the admission History of Present Illness Chief Complaint: Altered mental status Primary Care Provider: [facility] August is a 77 year old male with a PMG significant for DMII, previous CVA with left hemiparesis, dementia, HTN, anxiety,previous GI bleeds,and dysphagia who presented to the [facility] ED on 01/06 from [facility] for ongoing altered mental status. The patient presented to the ED on 01/05 with similar complaints and had been found to be hypoglycemic with BSG in the 30s by EMS. While in the ED he reportedly refused further lab draws and was very aggressive with ED staff. He was able to tolerate a diet and was discharged back to [facility]. In the ED the patient was noted to be hypotensive at but otherwise stable. Labs were significant for a leukocytosis of 14 with neutrophil predominance of 12, lymphocytosis of 0.25, cr of 12 (no previous baseline), potassium of 6.7, sodium of 131, AG of 20 with bicarb of 13, corrected calcium of 8.3, procal 5.56, UA with 3+ blood but otherwise unremarkable, and full respiratory biofire negative. Chest xray was read as Patchy left basilar densities which may represent atelectasis or pneumonia. This will be better appreciated on the same day abdomen and pelvis CT.. Ct of the head was read as Multiple old infarcts as described above. No definite acute intracranial abnorm ality.. CT of the abd/pelvis without con was read as "1. Multifocal bilateral airspace opacities with small bilateral pleural effusions. This likely represents a pneumonia and could be due to aspiration. 2. Small hiatus hernia with thickening of the distal esophagus suggestive of a nonspecific esophagitis. 3. The stomach is mildly distended. No evidence for gastric outlet obstruction. 4. No definite bowel wall thickening or obstruction. 5. Mild fullness within the bilateral renal collecting system without carlos hydronephrosis. The bladder is decompressed by a Kaba catheter. 6. Mild asymmetric thickening of the left iliacus muscle and comparison to the right. This likely represents the normal musculature. A small intramuscular hematoma is considered less likely but not entirely excluded. 7. Mild edematous change. 8. Additional findings as described above. Ct of the lumbar spine. Prior to admission the patient was given 1gm IV Tylenol, 1gm IV calcium gluconate, 5 units regular human insulin, 500 mL NSS, a dose of Zosyn, 4mg IV Zofran, and an albuterol treatment. At the time of the exam the patient was lying in bed in no acute distress. He states multiple times that he does not want any needles when asked how he is feeling. He denies any complaints at this time and is unable to tell me why he was taken to the ED. He denies current chest pain, SOB, abd pain, nausea, vomiting, diarrhea, dysuria, hematuria, and recent falls. During discussions with the patient regarding recurrent lab draws and need for possible dialysis he was adamant that he would not want either. However, the patient was unable to explain back to me the acute problems I just explained to him and the risks/benefits of dialysis if needed after I just explained them. We were able t o speak with the patient's Niece/POA (Sunitha Thacker) who explained that the patient is a DNR/DNI but he would want dialysis if needed. She confirmed that he has a fear of needles but would want treatment if the patient were controlled. Please refer to Dr. Edwards's attestation for any changes to the treatment plan Allergies Allergy/AdvReac Type Severity Reaction Status Date / Time No Known Allergies Allergy Verified 01/06/23 08:59 Home Medications Medication Instructions Recorded Confirmed Type Insta-Glucose See Rx Instructions .Route .COMPLEX 01/06/23 01/06/23 History Milk Of Magnesia Susp 1200mg/15ml See Rx Instructions .Route .COMPLEX 01/06/23 01/06/23 History acetaminophen 325 mg tablet 650 mg PO Q6H PRN Mild Pain (Scale 01/06/23 01/06/23 History Score 1-4) acetaminophen 325 mg tablet 650 mg PO Q6H PRN elevated temp 01/06/23 01/06/23 History albuterol sulfate 90 mcg/actuation 2 puff inhalation Q6H PRN 01/06/23 01/06/23 History aerosol inhaler shortness of breath aspirin 81 mg tablet,delayed 81 mg PO DAILY 01/06/23 01/06/23 History release atorvastatin 20 mg tablet 20 mg PO DAILY 01/06/23 01/06/23 History bisacodyl 10 mg rectal suppository See Rx Instructions .Route 01/06/23 01/06/23 History .COMPLEX PRN Constipation clopidogrel 75 mg tablet 75 mg PO DAILY 01/06/23 01/06/23 History divalproex 125 mg tablet,delayed 125 mg PO TID 01/06/23 01/06/23 History release escitalopram oxalate 10 mg tablet 10 mg PO DAILY 01/06/23 01/06/23 History ferrous sulfate 325 mg (65 mg 325 mg PO QAM 01/06/23 01/06/23 History iron) tablet glucagon HCl 1 mg solution for See Rx Instructions .Route .COMPLEX 01/06/23 01/06/23 History injection (Glucagon (HCl) Emergency Kit) glucagon HCl 1 mg solution for See Rx Instructions .Route .COMPLEX 01/06/23 01/06/23 History injection (Glucagon (HCl) Emergency Kit) hydroxyzine pamoate 25 mg capsule 50 mg PO Q24H PRN Anxiety 01/06/23 01/06/23 History pantoprazole 40 mg tablet,delayed 40 mg PO BID 01/06/23 01/06/23 History release quetiapine 25 mg tablet 100 mg PO HS 01/06/23 01/06/23 History quetiapine 50 mg tablet 50 mg PO HS 01/06/23 01/06/23 History sodium phosphates 19 gram-7 See Rx Instructions .Route .COMPLEX 01/06/23 01/06/23 History gram/118 mL enema (Enema) spironolactone 25 mg tablet 25 mg PO DAILY 01/06/23 01/06/23 History Past Med/Surg History Medical History Aspiration pneumonia Social History Smoking Status: Unknown if ever smoked Preferred Language: Kiswahili Feels Safe at Home: Yes Physical Exam Physical Exam: Physical Exam: General: In no acute distress, stated age, chronically ill-appearing but non- toxic HEENT: Left sided-weakness from previous CVA's, otherwise no focal findings Chest/Pulm: No respiratory distress, symmetrical chest expansion, diminished breath sounds in the BL lower lung varner but otherwise CTA Cardiac: RRR, no murmurs noted Abdomen: Negative for ascites and bruising, normoactive bowel sounds, soft, non-tender to palpation throughout Musculoskeletal: Baseline left-sided spasticity from previous strokes, able to use right upper and lower extremities voluntarily Extremities: Radial, dorsalis pedis, and posterior tibial pulses are intact and symmetrical, no edema noted in the BL LE's Skin: Warm, dry, no rashes , lesions, or scars noted Neuro: Alert and oriented to person only, no focal defects, chronic left estefanía ed weakness at baseline, no tremors noted Psych: No acute distress, calm and cooperative during the exam Results & Data Results & Data Vital Signs (Past 12 Hours) Vital Signs Temp Pulse Pulse Resp BP BP Pulse Ox 01/06/23 10:05 91 H 18 103/61 92 01/06/23 08:55 83 20 120/60 99 01/06/23 08:40 88 18 90/57 L 91 01/06/23 08:05 92 01/06/23 07:40 86 01/06/23 07:36 36.6 C 85 20 151/80 H 92 O2 Del Method 01/06/23 10:05 Room Air 01/06/23 08:55 Nebulizer 01/06/23 08:40 Room Air 01/06/23 08:05 Room Air 01/06/23 07:40 01/06/23 07:36 Room Air Laboratory Results Abnormal lab results 01/06/23 01/06/23 01/06/23 Range/Units 07:41 07:41 07:41 WBC 14.02 H (4.8-10.8) K/ul RBC 4.19 L (4.70-6.10) M/uL Hgb 11.6 L (14.0-18.0) g/dl Hct 32.9 L (42.0-52.0) % MCV 78.5 L (80.0-100.0) fL RDW Coeff of Edilia 15.9 H (11.5-14.5) % Neut # (Auto) 12.67 H (1.40-6.50) K/uL Lymph # (Auto) 0.25 L (1.20-3.40) K/uL [place] # (Auto) 0.97 H (0.11-0.59) K/uL Sodium 131 L (136-145) mmol/L Potassium 6.7 H* (3.5-5.1) mmol/L Carbon Dioxide 13 L (21-32) mmol/L Anion Gap 20 H (3-11) BUN 177 H (6-23) mg/dl Creatinine 12.39 H* (0.6-1.4) mg/dl Calcium 7.4 L (8.6-10.3) mg/dl Total Protein 5.9 L (6.0-8.3) gm/dl Albumin 3.0 L (3.4-5.0) gm/dl Procalcitonin 5.56 H (0-0.5) ng/ml Urine Blood (Negative) Urine RBC (Auto) (0-4) /hpf 01/06/23 01/06/23 Range/Units 07:41 08:04 WBC (4.8-10.8) K/ul RBC (4.70-6.10) M/uL Hgb (14.0-18.0) g/dl Hct (42.0-52.0) % MCV (80.0-100.0) fL RDW Coeff of Edilia (11.5-14.5) % Neut # (Auto) (1.40-6.50) K/uL Lymph # (Auto) (1.20-3.40) K/uL [place] # (Auto) (0.11-0.59) K/uL Sodium 131 L (136-145) mmol/L Potassium (3.5-5.1) mmol/L Carbon Dioxide 13 L (21-32) mmol/L Anion Gap 20 H (3-11) BUN 179 H (6-23) mg/dl Creatinine 12.02 H* D (0.6-1.4) mg/dl Calcium 7.4 L (8.6-10.3) mg/dl Total Protein (6.0-8.3) gm/dl Albumin 2.9 L (3.4-5.0) gm/dl Procalcitonin (0-0.5) ng/ml Urine Blood 3+ H (Negative) Urine RBC (Auto) 10-30 H (0-4) /hpf Diagnostic Findings Chest X-Ray 01/06/23 07:45 XR chest 1V portable HISTORY: cough COMPARISON: None. FINDINGS: There are low lung volumes. No pneumothorax. No pleural effusions. The cardiac silhouette is top normal in size. The right lung is essentially clear. There are patchy left basilar densities noted. IMPRESSION: Patchy left basilar densities which may represent atelectasis or pneumonia. This will be better appreciated on the same day abdomen and pelvis CT. ACT 112: Negative or not required by law. Electronically signed by: Marcus Cox M.D. 01/06/2023 8:[address] 01/06/23 07:[address] DOSE: HISTORY: back pain TECHNIQUE: Multiaxial CT images of the lumbar spine were performed and reformatt ed in the sagittal and coronal plane without the use of contrast. A dose lowering technique was utilized adhering to the principles of ALARA. COMPARISON: None. FINDINGS: No fracture or subluxation within the lumbar spine. There is mild dextroscoliosis. There is moderate to severe disc space narrowing throughout the lumbar spine most pronounced at the L4-5 level. Moderate facet degenerative c hanges within the lower lumbar spine. Visualized sacrum is intact. No high-grade central canal stenosis by CT technique. Paravertebral soft tissues are unremarkable. IMPRESSION: No fracture or subluxation within the lumbar spine. ACT 112: Negative or not required by law. Electronically signed by: Marcus Cox M.D. 01/06/2023 11:[address] 01/06/23 08:[address] DOSE: HISTORY: Altered mental status. agitation TECHNIQUE: Multiaxial CT images of the head were performed without the use of intravenous contrast. Automated exposure control was utilized for this study. A dose lowering technique was utilized adhering to the principles of ALARA. Comparison: None. Findings: The paranasal sinuses and mastoid air cells are clear. The calvarium and skull base are intact. Mild motion artifact. 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 Additional focal areas of encephalitis within the occipital lobes consistent with old infarcts. There are old lacunar infarcts within the cerebellar hemispheres, right thalamus, left basal ganglia. No definite acute i nfarct is identified. No mass, hematoma, midline shift. Mild atrophy and microvascular ischemic changes are noted. 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 No definite acute intracranial abnormality. ACT 112: Negative or not required by law. Electronically signed by: Marcus Cox M.D. 01/06/2023 9:42 AM Abdomen/Pelvis CT 01/06/23 08:[address] WITHOUT CONTRAST CT DOSE: 1549.16 mGy.cm HISTORY: Abdominal distention. TECHNIQUE: Multiaxial CT images of the abdomen and pelvis were performed without contrast. A dose lowering technique was utilized adhering to the principles of ALARA. COMPARISON STUDY: None. FINDINGS: Patchy areas of airspace consolidation seen within the bilateral lower lobes and a few small groundglass airspace opacities within the right middle lobe. This is most pronounced within the left lower lobe. There is mild motion artifact. There are small bilateral pleural effusions. There is a small hiatus hernia with thickening of the distal esophagus. No pneumoperitoneum. No pneumatosis. No acute fractures identified. Coronary artery calcifications are noted. Bilateral gynecomastia is present. Small fat-containing umbilical hernia. Mild body wall edema. Slight asymmetric thickening within the left iliacus muscle best seen image 231. This is likely the normal musculature. A small intramuscular hematoma is considered less likely but not entirely excluded. The stomach is mildly distended and filled with gas and fluid. Pneumobilia is present with gas in the nondistended gallbladder. The unenhanced liver, spleen, pancreas, and adrenal glands are unremarkable. No renal or ureteral stones. Mild fullness within the bilateral renal collecting systems without carlos hydronephrosis. There is mild bilateral perinephric edema. Calcified plaque within the normal caliber abdominal aorta. No retroperitoneal or pelvic lymphadenopathy. Trace ascites noted within the pelvis. The bladder is deco mpressed by a Kaba catheter. The prostate gland is enlarged. There is suboptimal evaluation for bowel pathology due to the lack of intravenous and oral contrast. However, there is no definite bowel wall thickening or obstruction. Normal appendix. Colonic diverticulosis. No evidence for acute diverticulitis. IMPRESSION: 1. Multifocal bilateral airspace opacities with small bilateral pleural e ffusions. This likely represents a pneumonia and could be due to aspiration. 2. Small hiatus hernia with thickening of the distal esophagus suggestive of a nonspecific esophagitis. 3. The stomach is mildly distended. No evidence for gastric outlet obstruction. 4. No definite bowel wall thickening or obstruction. 5. Mild fullness within the bilateral renal collecting system without carlos hydronephrosis. The bladder is decompressed by a Kaba catheter. 6. Mild asymmetric thickening of the left iliacus muscle and comparison to the right. This likely represents the normal musculature. A small intramuscular hematoma is considered less likely but not entirely excluded. 7. Mild edematous change. 8. Additional findings as described above. ACT 112: Negative or not required by law. Electronically signed by: Marcus Cox M.D. 01/06/2023 11:00 AM ECG Additional Comments: Normal sinus rhythm Rightward axis Incomplete right bundle branch block Borderline ECG No previous ECGs available Code Status & VTE Plan Code Status DNR/DNI VTE Prophylaxis Plan VTE Prophylaxis will be ordered: Yes Supervising Physician Co-Signing Physician Notes Patient seen and examined, chart reviewed, case discussed with Dennis Malhotra PA-C and I agree with the assessment and plan as above except as otherwise noted Labs and images reviewed August is a 77-year-old male with past medical history of vascular dementia, MCA infarct with left hemiparesis, hyperlipidemia, hypertension, anxiety, GERD, type II DM, heart failure with preserved ejection fraction, CAD who presents in renal failure with hyperkalemia Suspect obstructive obstructive, with suprapubic tenderness and following Kaba placement 1.9 L of output of light-colored urine. CT with ALTE focal bilateral airspace opacities and small bilateral pleural effusions, possibly aspiration pneumonia. Mild fullness of the bilateral renal collecting system without carlos hydronephrosis. Bladder decompressed at time of imaging Patient seen at the bedside. History limited by dementia, is oriented to year/month, redirects conversation frequently to avoiding venupuncture but can not elicit why this is being done. Did discuss potential life-threatening nature of renal failure and hyperkalemia, patient redirects the conversation to not wanting any type of venipuncture/needles. When asked if he would continue to worsen if he would want dialysis, does redirect the conversation to "no needles ". He is not able to elicit the risk/benefits of treatments other than redirecting to venipuncture, and does not demonstrate capacity at time of assessment. Case was reviewed with his niece. EMERALD Orellana and medical decision maker, paola. Available at She reports that while he would want to be numbed and avoid venipuncture, would want dialysis if this was able to extend his life. Had a carlos discussion over the heavy quality of life impact that dialysis can have, and reduced quality and attempted to extend life. She reports that both Edward and she are aware of the side effects of dialysis, and have had family members who have required dialysis including 1 who did from hypoglycemic complications. Despite this if it was likely to extend or prolong his life, he would want this as long as he was not aware of or could be sedated for venipuncture. Does note that he is DNR/DNI, and in the case of complete cardiac or respiratory arrest would not want resuscitation and confirms DNR/DNI status. At time bedside assessment lungs are grossly clear, slightly diminished in the bases. Limited movement of left upper extremity, left hand in claw position with wrist flexed. He is able to move arm slightly at the shoulder, otherwise left upper hemiparesis. Is able to wiggle left toes on command. 2+pitting edema in the lower extremities bilaterally Acute renal failure 2/2 suspected obstruction with hyperkalemia Kaba placed, brisk urine output. 1.9 L at time of reassessment. Patient at risk of bladder contracture hematuria, if this occurs do not clamp, continue to monitor for reobstruction and irrigate if needed Patient does have history of diastolic CHF, is not in overt respiratory failure at time of admission Calcium gluconate, insulin, bicarb, dextrose ordered in ER. Lokelma 3 times daily ordered on admitting consultation EKG obtained on admission consultation, incomplete bundle and T waves with slightly peaked appearance. QT is not prolonged. Nephrology consulted. Agree with above. Ideally patient's symptoms will be from obstructive uropathy and will improve quickly. If patient continues to worsen and/or manifests additional CHF would be a candidate for dialysis, although has high comorbidity. Patient does not have a current c dialysis catheter, per family has never had dialysis. Patient does not demonstrate capacity during dialysis discussion, his decision-maker is his niece with conta ct information above reports despite periprocedural anxiety around needles would want dialysis to extend his life if possible. See conversation above. Aspiration pneumonia Noted on CT, Pro-Tesfaye elevated with leukocytosis although this is complicated by renal failure. - MRSA positive. Switched to Unasyn + single load of vanc 20mpk. Maintanence vanc deferred pending stability of renal funciton. Linezolid not used 2/2 SSRI, doxy inadequate for initial tx due to clinical illness + PNA. Diastolic CHF Echo pending Records from [facility] [place] pending EKG as noted Troponin pending Type II DM Insulin as noted above, goal BSG [id number] History of CVA With residual left upper extremity weakness. Sensation is intact to sharp and noxious touch Patient denies history of cardiac stents, does have a history of diastolic CHF with records pending as noted Will hold Plavix and continue on aspirin monotherapy in case temporary dialysis catheter is to be placed. If BMP/creatinine rapidly improving may resume DAPT Other chronic medical issues as above PG Care Time/CCT Total # of Minutes Spent Total Time Spent with Patient: Total time spent is greater than 50% in coordination of care (as documented) at patient's floor/unit and/or counseling patient: [place] [address] INT INP/OBS CARE 3/75MIN Patient Type New Medical Decision Making High Complexity Diagnoses Altered mental status R41.82 Acute renal failure N17.9 Hyperkalemia E87.5 Aspiration pneumonia J69.0 High anion gap metabolic acidosis E87.29 Hyponatremia E87.1 Esophagitis K20.90 Hx of arterial ischemic stroke Z86.73 Left hemiparesis G81.94 DM II (diabetes mellitus, type II), controlled E11.9 HTN (hypertension) I10 Dementia F03.90
--- NOTE | 2023-01-06 11:01 | CT Scan Report ---
ABDOMEN AND PELVIS CT WITHOUT CONTRAST CT DOSE: 1549.16 mGy.cm HISTORY: Abdominal distention. TECHNIQUE: Multiaxial CT images of the abdomen and pelvis were performed without contrast. A dose lo wering technique was utilized adhering to the principles of ALARA. COMPARISON STUDY: None. FINDINGS: Patchy areas of airspace consolidation seen within the bilateral lower lobes and a few smal l groundglass airspace opacities within the right middle lobe. This is most pronounced within the lef t lower lobe. There is mild motion artifact. There are small bilateral pleural effusions. There is a small hiatus hernia with thickening of the distal esophagus. No pneumoperitoneum. No pneumatosis. No acute fractures identified. Coronary artery calcifications are noted. Bilateral gynecomastia is prese nt. Small fat-containing umbilical hernia. Mild body wall edema. Slight asymmetric thickening within the left iliacus muscle best seen image 231. This is likely the normal musculature. A small intramusc ular hematoma is considered less likely but not entirely excluded. The stomach is mildly distended an d filled with gas and fluid. Pneumobilia is present with gas in the nondistended gallbladder. The une nhanced liver, spleen, pancreas, and adrenal glands are unremarkable. No renal or ureteral stones. Mi ld fullness within the bilateral renal collecting systems without carlos hydronephrosis. There is mild bilateral perinephric edema. Calcified plaque within the normal caliber abdominal aorta. No retroper itoneal or pelvic lymphadenopathy. Trace ascites noted within the pelvis. The bladder is decompressed by a Astudillo catheter. The prostate gland is enlarged. There is suboptimal evaluation for bowel pathol ogy due to the lack of intravenous and oral contrast. However, there is no definite bowel wall thicke mamta or obstruction. Normal appendix. Colonic diverticulosis. No evidence for acute diverticulitis. IMPRESSION: 1. Multifocal bilateral airspace opacities with small bilateral pleural effusions. This likely repres ents a pneumonia and could be due to aspiration. 2. Small hiatus hernia with thickening of the distal esophagus suggestive of a nonspecific esophagiti s. 3. The stomach is mildly distended. No evidence for gastric outlet obstruction. 4. No definite bowel wall thickening or obstruction. 5. Mild fullness within the bilateral renal collecting system without carlos hydronephrosis. The bladd er is decompressed by a Astudillo catheter. 6. Mild asymmetric thickening of the left iliacus muscle and comparison to the right. This likely rep resents the normal musculature. A small intramuscular hematoma is considered less likely but not enti rely excluded. 7. Mild edematous change. 8. Additional findings as described above. ACT 112: Negative or not required by law. Electronically signed by: Marcus Cox M.D. 01/06/2023 11:00 AM
--- NOTE | 2023-01-06 11:01 | CT Scan Report ---
LUMBAR SPINE CT CT DOSE: HISTORY: back pain TECHNIQUE: Multiaxial CT images of the lumbar spine were performed and reformatted in the sagittal an d coronal plane without the use of contrast. A dose lowering technique was utilized adhering to the principles of ALARA. COMPARISON: None. FINDINGS: No fracture or subluxation within the lumbar spine. There is mild dextroscoliosis. There is moderate to severe disc space narrowing throughout the lumbar spine most pronounced at the L4-5 leve l. Moderate facet degenerative changes within the lower lumbar spine. Visualized sacrum is intact. No high-grade central canal stenosis by CT technique. Paravertebral soft tissues are unremarkable. IMPRESSION: No fracture or subluxation within the lumbar spine. ACT 112: Negative or not required by law. Electronically signed by: Marcus Cox M.D. 01/06/2023 11:00 AM
[2023-01-06] MEDS: SODIUM BICARBONATE 8.4% 150 MEQ in DEXTROSE 5% 1,000 ML IV SCH ×2 (11:08→20:00)
[2023-01-06 11:17] LABS: HCO3 VBG 16 mmol/L; Oxygen Saturation VBG < 60.0 %; PCO2 VBG 39 mmHg (38-50); PO2 VBG 38 mmHg; pH VBG 7.22 (7.36-7.41)
[2023-01-06] MEDS ORDERED: DEXTROSE 50% 50 ML SYRINGE IV PRN (11:18)
[2023-01-06] MEDS ORDERED: GLUCAGON FOR INJ 1 MG VIAL SQ PRN (11:18)
[2023-01-06] MEDS ORDERED: CARBOHYDRATES FOR HYPOGLYCEMIA PO PRN (11:18)
[2023-01-06] MEDS ORDERED: GLUCOSE 40% GEL 15 GM TUBE PO PRN (11:18)
[2023-01-06] MEDS ORDERED: GLUCOSE 10 TAB/TUBE PO PRN (11:18)
[2023-01-06 11:41] LABS: Alanine Aminotransferase 20 U/L (7-52); Albumin Globulin Ratio 1.1 (0.9-2); Albumin Level 2.8 gm/dl (3.4-5.0); Alkaline Phosphatase 57 U/L (34-104); Anion Gap 16 (3-11); Bilirubin,Total 0.4 mg/dl (0.2-1.0); Calcium 7.7 mg/dl (8.6-10.3); Carbon Dioxide 16 mmol/L (21-32); Chloride 102 mmol/L (98-107); Est GFR (African American) 5.1 ml/min; Est GFR (Non-African American) 4.4 ml/min; Globulin 2.6 gm/dl (2.5-4.0); Glucose 88 mg/dl (70-99(Fasting)); Magnesium 2.1 mg/dl (1.7-2.4); Phosphorus 6.4 mg/dl (2.5-4.9); Sodium 134 mmol/L (136-145); Total Protein 5.4 gm/dl (6.0-8.3)
[2023-01-06] MEDS ORDERED: PANTOprazole 40 MG in SYRINGE 0 ML IV ONE (11:41)
--- NOTE | 2023-01-06 11:43 | Nephrology Consultation ---
Date of Consultation January 06, 2023 Assessment & Plan (1) Acute renal failure: * 1st [facility] Hospitalization. Baseline Cr is unknown * Brisk diuresis following Astudillo catheter insertion points to post obstructive cause * Net 1.9 L UO since Astudillo placed * Creatinine has improved from 12.3-->10 following Astudillo catheter insertion * Abdominal CT films reviewed. Only mild distention of renal collecting system after Astudillo placed * Urine microscopy is negative for cellular casts * Hold HD at this time as patient is diuresing and kidney function is improved following urinary catheter insertion. Monitor PRP q4 hrs * Poor [facility] dialysis candidate due to h/o prior CVA, L hemiparesis and penitentiary status (2) Hyperkalemia: * Initial K 6.7. ECG without NE, QRS prolongation * Agree w/ acute medical management including IV Ca and bicarbonate gtt * Agree w/ scheduled Lokelma * Follow up serum K at 11:10 was hemolyzed. Awaiting repeat draw (3) Aspiration pneumonia: * On IV Zosyn (4) Altered mental status: (5) Dementia: History of Present Illness Reason for Consultation: MED History of Present Illness Mr. Maynard is a 77 year old white male who is seen at the request of the [facility] Hospitalist Service for evaluation of MED. Mr. Maynard was unable to provide any medical history. Information for the HPI is obtained from the EMR and tila gonzalez w/ Dr. Breen. Mr. Maynard is currently a resident at [facility]. This is his 1st [facility] admission. There are no prior creatinine values on record. He was brought to the EMD this morning for evaluation of confusion/agitation and hypoglycemia. Mr. Maynard was found to have SBP 90's, WBC# 14K, K 6.7, HCO3 13, BUN 179, Cr 12.39. ECG revealed NSR w/ NE 146 msec, nrml QRS duration but mild peaking of T-waves in the anterolateral leads. Head CT revealed only old infarcts. Noncontrast abdominal CT revealed bilateral airspace opacities c/w aspiration pneumonia, small hiatal hernia, mild fullness of bilateral renal collecting system. The bladder was decompressed w/ a Astudillo catheter. Medical therapy has been provided with IV calcium, bicarbonate and dextrose. Oral Lokelma has been ordered. 1900 cc UO has been recorded since Astudillo catheter insertion. PMH: vascular dementia, MCA infarct with left hemiparesis, hyperlipidemia, HTN, anxiety, GERD, AODM, diastolic CHF, ASCVD Allergies Allergy/AdvReac Type Severity Reaction Status Date / Time No Known Allergies Allergy Verified 01/06/23 08:59 Home Medications Medication Instructions Recorded Confirmed Type Insta-Glucose See Rx Instructions .Route .COMPLEX 01/06/23 01/06/23 History Milk Of Magnesia Susp 1200mg/15ml See Rx Instructions .Route .COMPLEX 01/06/23 01/06/23 History acetaminophen 325 mg tablet 650 mg PO Q6H PRN Mild Pain (Scale 01/06/23 01/06/23 History Score 1-4) acetaminophen 325 mg tablet 650 mg PO Q6H PRN elevated temp 01/06/23 01/06/23 History albuterol sulfate 90 mcg/actuation 2 puff inhalation Q6H PRN 01/06/23 01/06/23 History aerosol inhaler shortness of breath aspirin 81 mg tablet,delayed 81 mg PO DAILY 01/06/23 01/06/23 History release atorvastatin 20 mg tablet 20 mg PO DAILY 01/06/23 01/06/23 History bisacodyl 10 mg rectal suppository See Rx Instructions .Route 01/06/23 01/06/23 History .COMPLEX PRN Constipation clopidogrel 75 mg tablet 75 mg PO DAILY 01/06/23 01/06/23 History divalproex 125 mg tablet,delayed 125 mg PO TID 01/06/23 01/06/23 History release escitalopram oxalate 10 mg tablet 10 mg PO DAILY 01/06/23 01/06/23 History ferrous sulfate 325 mg (65 mg 325 mg PO QAM 01/06/23 01/06/23 History iron) tablet glucagon HCl 1 mg solution for See Rx Instructions .Route .COMPLEX 01/06/23 01/06/23 History injection (Glucagon (HCl) Emergency Kit) glucagon HCl 1 mg solution for See Rx Instructions .Route .COMPLEX 01/06/23 01/06/23 History injection (Glucagon (HCl) Emergency Kit) hydroxyzine pamoate 25 mg capsule 50 mg PO Q24H PRN Anxiety 01/06/23 01/06/23 History pantoprazole 40 mg tablet,delayed 40 mg PO BID 01/06/23 01/06/23 History release quetiapine 25 mg tablet 100 mg PO HS 01/06/23 01/06/23 History quetiapine 50 mg tablet 50 mg PO HS 01/06/23 01/06/23 History sodium phosphates 19 gram-7 See Rx Instructions .Route .COMPLEX 01/06/23 01/06/23 History gram/118 mL enema (Enema) spironolactone 25 mg tablet 25 mg PO DAILY 01/06/23 01/06/23 History Patient History Medical History Aspiration pneumonia Social History Smoking Status: Unknown if ever smoked Preferred Language: Kiny[place] Feels Safe at Home: Yes Review of Systems Review of Systems: Unobtainable due to reduced consciousness Physical Exam Constitutional: + ill appearing Eyes: PERRL, conjunctivae normal, anicteric sclerae ENMT: external ear and nose normal, oropharynx normal Neck: trachea midline, no thyromegaly Respiratory: Auscultation: lungs clear to auscultation bilaterally Cardiovascular: Rate/Rhythm: regular rate and regular rhythm Gastrointestinal (Abdomen): normal bowel sounds, soft, nontender, no hepatosplenomegaly Skin: no rashes, warm and dry Neurologic: somnolent but will awaken to verbal/tactile stimulus and speak name Results & Data Vital Signs (Past 12 Hours) Vital Signs Temp Pulse Pulse Resp BP BP Pulse Ox 01/06/23 10:05 91 H 18 103/61 92 01/06/23 08:55 83 20 120/60 99 01/06/23 08:40 88 18 90/57 L 91 01/06/23 08:05 92 01/06/23 07:40 86 01/06/23 07:36 36.6 C 85 20 151/80 H 92 O2 Del Method 01/06/23 10:05 Room Air 01/06/23 08:55 Nebulizer 01/06/23 08:40 Room Air 01/06/23 08:05 Room Air 01/06/23 07:40 01/06/23 07:36 Room Air Laboratory Results Laboratory Tests 01/06/23 01/06/23 01/06/23 07:41 07:41 07:41 WBC 14.02 H Hgb 11.6 L Hct 32.9 L Plt Count 229 Sodium Potassium 6.7 H* Chloride Carbon Dioxide BUN Creatinine 12.39 H* Est GFR (Non-Af Amer) Lactate Calcium Total Bilirubin ALT Albumin Procalcitonin 5.56 H Urine Appearance Ur Specific [place] Urine Protein Urine Glucose (UA) Urine Blood Urine RBC (Auto) Urine Bacteria (Auto) 01/06/23 01/06/23 01/06/23 07:41 08:04 11:10 WBC Hgb Hct Plt Count Sodium 131 L Potassium Chloride 98 Carbon Dioxide 13 L BUN 179 H Creatinine 12.02 H* D 10.05 H* D Est GFR (Non-Af Amer) 3.6 Lactate Calcium 7.4 L Total Bilirubin 0.3 ALT 21 Albumin 2.9 L Procalcitonin Urine Appearance Clear Ur Specific [place] 1.014 Urine Protein Negative Urine Glucose (UA) Negative Urine Blood 3+ H Urine RBC (Auto) 10-30 H Urine Bacteria (Auto) Negative 01/06/23 11:10 WBC Hgb Hct Plt Count Sodium Potassium Chloride Carbon Dioxide BUN Creatinine Est GFR (Non-Af Amer) Lactate 2.3 H* Calcium Total Bilirubin ALT Albumin Procalcitonin Urine Appearance Ur Specific [place] Urine Protein Urine Glucose (UA) Urine Blood Urine RBC (Auto) Urine Bacteria (Auto) PG Care Time/CCT Total # of Minutes Spent Total Time Spent with Patient: Total time spent is greater than 50% in coordination of care (as documented) at patient's floor/unit and/or counseling patient: Coding Level of Care Code 48712 IN/OBS CONSULT LVL 5,80M Diagnoses Acute renal failure N17.9 Hyperkalemia E87.5 Aspiration pneumonia J69.0 Altered mental status R41.82 Dementia F03.90
[2023-01-06] MEDS ORDERED: ASPIRIN 81 MG ECTAB PO STA (11:58)
[2023-01-06 12:14] LABS: BUN Creatinine Ratio 16.2 (10-20); Blood Urea Nitrogen 163 mg/dl (6-23)
[2023-01-06] MEDS: INSULIN ASPART PER UNIT CHARGE SC SCH ×2 (12:20→19:24)
[2023-01-06] MEDS: SODIUM ZIRCONIUM CYCLOSILICATE 10 GM PACKET PO SCH ×2 (12:23→14:15)
[2023-01-06] MEDS ORDERED: VANCOMYCIN HCL 1,500 MG in SODIUM CHLORIDE 0.9% 500 ML IV ONE ×2 (12:24→12:45)
[2023-01-06] MEDS ORDERED: VANCOMYCIN CONSULT ACTIVE PRN (12:24)
[2023-01-06 12:38] LABS: Anion Gap 16 (3-11); Calcium 7.6 mg/dl (8.6-10.3); Carbon Dioxide 16 mmol/L (21-32); Chloride 103 mmol/L (98-107); Est GFR (African American) 5.3 ml/min; Est GFR (Non-African American) 4.6 ml/min; Glucose 111 mg/dl (70-99(Fasting)); Potassium 5.6 mmol/L (3.5-5.1); Sodium 135 mmol/L (136-145)
[2023-01-06] MEDS: ALBUTEROL 0.5% NEB SOLN 2.5 MG/0.5 ML VIAL NEB SCH ×2 (12:46→19:45)
[2023-01-06 12:47] LABS: BUN Creatinine Ratio 16.4 (10-20); Blood Urea Nitrogen 159 mg/dl (6-23)
[2023-01-06] MEDS ORDERED: Patient's HEIGHT &/or WEIGHT Needed SCH (13:00)
[2023-01-06] MEDS: DIVALPROEX DELAY RELEASE 125 MG TABEC PO SCH ×2 (14:15→22:45)
[2023-01-06 17:28] LABS: Base Excess VBG -3.7 mEq/L; HCO3 VBG 22 mmol/L; Oxygen Saturation VBG 75.2 %; PCO2 VBG 42 mmHg (38-50); PO2 VBG 47 mmHg; pH VBG 7.33 (7.36-7.41)
[2023-01-06] MEDS ORDERED: PIPERACILLIN/TAZOBACTAM 4.5 GM in DEXTROSE 5% 100 ML IV SCH (18:00)
[2023-01-06] MEDS ORDERED: AMPICILLIN/SULBACTAM SOD 3,000 MG in 0.9 % SODIUM CHLORIDE 100 ML IV SCH (18:00)
[2023-01-06 19:42] LABS: BUN Creatinine Ratio 17.7 (10-20); Calcium 7.7 mg/dl (8.6-10.3); Creatinine Clr Calc Pharmacy 9.1 ml/min; Est GFR (African American) 8.7 ml/min; Est GFR (Non-African American) 7.5 ml/min; Magnesium 1.8 mg/dl (1.7-2.4); Phosphorus 5.3 mg/dl (2.5-4.9); Potassium 4.3 mmol/L (3.5-5.1)
[2023-01-06] MEDS ORDERED: ALBUTEROL 0.083% NEBU SOLN 3 ML VIAL NEB PRN (21:12)
[2023-01-06] MEDS ORDERED: ACETAMINOPHEN 325 MG TAB PO PRN (22:34)
[2023-01-06] MEDS ORDERED: AMOXICILLIN/CLAVULANATE 500 MG TAB PO ONE (22:45)
[2023-01-06] MEDS: QUEtiapine FUMARATE 25 MG TABLET PO SCH (22:45)
[2023-01-06] MEDS: QUEtiapine FUMARATE 100 MG TABLET PO SCH (22:45)
--- NOTE | 2023-01-06 23:37 | Electrocardiogram Report ---
Test Reason : Blood Pressure : / mmHG Vent. Rate : 088 BPM Atrial Rate : 088 BPM P-R Int : 146 ms QRS Dur : 104 ms QT Int : 374 ms P-R-T Axes : 059 094 063 degrees QTc Int : 452 ms Normal sinus rhythm Rightward axis Incomplete right bundle branch block Borderline ECG No previous ECGs available Confirmed by Samm Vicente ([id number]) on 01/06/2023 11:37:27 PM Referred By: [facility] Confirmed By:Samm Vicente
[2023-01-07] MEDS: INSULIN ASPART PER UNIT CHARGE SC SCH ×8 (00:02→23:18)
--- NOTE | 2023-01-07 05:47 | Communication Note ---
Date of Service: January 07, 2023 Went to the bedside to discuss with patient the need for IV medications and lab blood work. Told patient reasoning for why these are needed to optimize his healthcare in the hospital setting and prevent further decompensation due to infection and kidney abnormalities. Patient voiced he understood the repercussions involved in denying IV sticks and blood work saying "I don't want any needles no matter what". Patient refused IV even after offered topical lidocaine numbing solution and ativan to quell anxiety however patient still refused. Patient also refused morning labs.
--- NOTE | 2023-01-07 08:58 | Nephrology Progress Note ---
Date of Service January 07, 2023 Assessment & Plan (1) Acute renal failure: Plan: * 1st [facility] Hospitalization. Baseline Cr is unknown * Brisk diuresis following Astudillo catheter insertion points to post obstructive cause * Net 2.7 L UO since Astudillo placed * Creatinine has improved from 12.3-->6.5 following Astudillo catheter insertion. Patient refused all blood work this morning * Abdominal CT films reviewed. Only mild distention of renal collecting system after Astudillo placed * Urine microscopy is negative for cellular casts * Poor [facility] dialysis candidate due to h/o prior CVA, L hemiparesis, assisted status and refusal of routine venipuncture * Urology evaluation is indicated, however, suspect patient will not consent to any intervention since he refuses routine labs. Consider alpha maranda therapy and [facility] Astudillo catheter. Consider Palliative Care evaluation (2) Hyperkalemia: Plan: * Corrected w/ medical management. Lokelma has been stopped (3) Aspiration pneumonia: Plan: * On IV Unasyn (4) Altered mental status: Plan: * Improved (5) Dementia: Plan: * Recommend Palliative Care consultation to define goals of care. Patient declines lab work. He might benefit from hospice care or comfort measures when he returns to assisted Admission and Anticipated Discharge Date Admission Date: January 06, 2023 Subjective Mr. Maynard was evaluated in his hospital room this morning. He was alert and oriented to self and place. He refused lab draw and BSG this am. Mr. Maynard does endorse a recent h/o urinary hesitancy Review of Systems Eyes: no problem reported Ear, Nose, Mouth, Throat: no problem reported Respiratory: no cough and no dyspnea Cardiovascular: no chest pain Gastrointestinal: no abdominal pain, no vomiting and no diarrhea/loose stools Genitourinary: + urinary hesitancy Physical Exam Constitutional: not in distress Eyes: PERRL, conjunctivae normal, anicteric sclerae ENMT: external ear and nose normal, oropharynx normal Neck: trachea midline, no thyromegaly Respiratory: Auscultation: lungs clear to auscultation bilaterally Cardiovascular: Rate/Rhythm: regular rate and regular rhythm Gastrointestinal (Abdomen): normal bowel sounds, soft, nontender, no hepatosplenomegaly Skin: no rashes, warm and dry Results & Data Vital Signs (Past 12 Hours) Vital Signs Temp Pulse Pulse Resp BP BP Pulse Ox 01/07/23 07:59 37.0 C 84 18 123/67 93 01/07/23 07:17 36.8 C 87 16 128/74 93 01/07/23 03:13 37.4 C 97 H 16 122/61 93 01/07/23 00:57 37.5 C 97 H 23 152/68 H 93 01/06/23 22:54 94 H 01/06/23 22:27 91 H 01/06/23 22:01 37.1 C 90 20 145/65 H 96 01/06/23 21:50 01/06/23 21:00 121/60 O2 Del Method 01/07/23 07:59 Room Air 01/07/23 07:17 Room Air 01/07/23 03:13 Room Air 01/07/23 00:57 Room Air 01/06/23 22:54 01/06/23 22:27 01/06/23 22:01 Room Air 01/06/23 21:50 Room Air 01/06/23 21:00 Laboratory Results Laboratory Tests 01/06/23 01/06/23 07:41 19:02 WBC 14.02 H Hgb 11.6 L Hct 32.9 L Plt Count 229 Sodium 139 Potassium 4.3 D Chloride 105 Carbon Dioxide 22 BUN 115 H D Creatinine 6.49 H* D Glucose 179 H Calcium 7.7 L Phosphorus 5.3 H Magnesium 1.8 PG Care Time/CCT Total # of Minutes Spent Total Time Spent with Patient: Total time spent is greater than 50% in coordination of care (as documented) at patient's floor/unit and/or counseling patient: Coding Level of Care Code 83640 SUB INP/OBS CARE 3/50MIN Diagnoses Acute renal failure N17.9 Acute renal failure type: unspecified Hyperkalemia E87.5 Aspiration pneumonia J69.0 Aspiration pneumonia type: unspecified Laterality: unspecified laterality Lung location: unspecified part of lung Altered mental status R41.82 Dementia F03.90 (1) Acute renal failure Acute renal failure type: unspecified Qualified Code(s): N17.9 - Acute kidney failure, unspecified (3) Aspiration pneumonia Aspiration pneumonia type: unspecified Laterality: unspecified laterality Lung location: unspecified part of lung Qualified Code(s): J69.0 - Pneumonitis due to inhalation of food and vomit
[2023-01-07] MEDS: ASPIRIN 81 MG ECTAB PO SCH (09:28)
[2023-01-07] MEDS: DIVALPROEX DELAY RELEASE 125 MG TABEC PO SCH ×3 (09:29→21:16)
[2023-01-07] MEDS ORDERED: PANTOprazole 40 MG in SYRINGE 0 ML IV SCH (11:00)
[2023-01-07] MEDS ORDERED: predniSONE 20 MG TAB PO STA (11:58)
[2023-01-07] MEDS ORDERED: LIDOCAINE/PRILOCAINE 2.5% EA CRM EXT PRN (11:58)
--- NOTE | 2023-01-07 12:02 | Hospitalist Progress Note ---
Date of Service January 07, 2023 Assessment & Plan (1) Acute renal failure: Plan: Presenting Cr 12 with BUN of 179 MED/ARF likely combination of obstructive uropathy (severe urinary retention prior to kaba catheter insertion) as well as pre-renal factors Appears severely volume contracted on examination 2 L of urine output immediately following kaba placement Creatinine is rapidly improving with IV hydration & kaba placement Nephrology was consulted; appreciate their assistance Cont IV fluids and supportive care Likely with BPH leading to urinary retention --> start flomax 0.4mg daily, first dose tomorrow am, if BPs will allow Restart IV fluids - plasma-lyte at 80cc/hr (2) Hyperkalemia: Plan: 2nd #1 - resolved with supportive care, fluids, etc aldactone use likely contributed as well (3) Aspiration pneumonia: Plan: By report pt had had vomiting episodes at [facility] CT a/p (lung cuts) show the b/l basilar infiltrates Cont zosyn MRSA screen is +; thus, use zyvox 600 BID for MRSA coverage will need to follow QTc carefully (4) Sepsis: Plan: 2nd aspiration pneumonia cont abx as above follow blood cx's (5) High anion gap metabolic acidosis: Plan: 2nd acute renal failure and lactic acidosis Resolving (6) Hyponatremia: Plan: 2nd to ARF resolved lowest Na level was 131 upon ER presentation now 142 on afternoon labs (7) Esophagitis: Plan: Noted on CT of the abd/pelvis PPI (8) Hx of arterial ischemic stroke: Plan: resume plavix cont asa both for secondary prevention (9) Left hemiparesis: Plan: 2nd to prior stroke cont asa for secondary stroke prevention (10) DM II (diabetes mellitus, type II), controlled: Plan: Novolog SSI add basal insulin if necessary check an a1c in the am (11) HTN (hypertension): Plan: HOLD all anti-hypertensives at this time aldactone likely exacerbated the hyperkalemia (12) Dementia: Plan: Continue Seroquel and TID Depakote Need to check depakote level while here (13) Gouty arthritis of both ankles: Plan: exam c/w acute gout - likely due to ARF start prednisone 20mg now then 10mg starting tomorrow check a uric acid level am (14) Acute metabolic encephalopathy: Plan: 2nd to pneumonia, ARF/uremia, etc. 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 + (16) Hypoglycemia: Plan: present on admission likely due to stress of infection/illness, poor glycogen serves, etc could consider cortisol level BSGs normal since being fluid resuscitated, etc (17) Hypomagnesemia: Plan: replace 2 grams mag sulfate IV repeat level am (18) Constipation: Plan: add senna 2 tabs daily Plan patient is w/o capacity at this time very confused, little insight into his presentation, not oriented to place/time updated pt's niece, Ms Thacker she is POA she reports that Mr Maynard has a developmentally disabled daughter with cerebral palsy who lives in a SNF has a step-daughter that is now has a son with whom he is estranged [facility] patient would benefit from palliative care consult to refine goals of care Ms Thacker suggested that patient has been failing to thrive of late very complex care coordination care d/w Ms Thacker by phone care d/w nursing staff care d/w nephrology total time today 80 min Admission and Anticipated Discharge Date Admission Date: January 06, 2023 Subjective patient was sleeping upon my arrival he easily awoke he was confused stated he was at home in [place] also stated he lives alone in [place] later in the visit he said "I've been here for a week" he could not tell me why he was here earlier this am he was refusing most aspects of his care - blood draw, new IV start, etc he said multiple times "I don't like needles" he feels constipated - "I haven't gone in 2 weeks" since kaba placement he has had copious UOP finally, complaining of both ankles worse on left he can't tell me when it started Review of Systems Review of Systems: cv- no chest pain, no orthopnea pulm- no dyspnea, ?cough GI- no abd pain gen- fatigue, tired Physical Exam Physical Exam: gen - nontoxic appearing, NAD; confused mouth - MM very dry neck - no JVD heart - RRR, s1 s2 lungs - b/l basilar rales, no distress abd - mildly distended, BS+, NT, no HSM ext - mild edema left foot, none on right, pulses 2+ b/l musculo - synovitis of left ankle - tender with palpation or any passive ROM; right ankle - less amount of swelling but still a little tender to palpation psych - oriented to person only Results & Data Results & Data Vital Signs (Past 12 Hours) Vital Signs Temp Pulse Pulse Resp BP Pulse Ox O2 Del Method 01/07/23 10:56 36.7 C 83 19 138/72 94 Room Air 01/07/23 08:00 88 01/07/23 08:00 Room Air 01/07/23 07:59 37.0 C 84 18 123/67 93 Room Air 01/07/23 07:17 36.8 C 87 16 128/74 93 Room Air 01/07/23 03:13 37.4 C 97 H 16 122/61 93 Room Air 01/07/23 00:57 37.5 C 97 H 23 152/68 H 93 Room Air Laboratory Results Laboratory Results - last 48 hr 01/06/23 01/06/23 01/06/23 07:38 07:41 07:41 WBC 14.02 H RBC 4.19 L Hgb 11.6 L Hct 32.9 L MCV 78.5 L MCH 27.7 MCHC 35.3 RDW Std Deviation 45.3 RDW Coeff of Edilia 15.9 H Plt Count 229 MPV 10.5 Immature Gran % (Auto) 0.6 Neut % (Auto) 90.3 Lymph % (Auto) 1.8 [place] % (Auto) 6.9 Eos % (Auto) 0.3 Baso % (Auto) 0.1 Neut # (Auto) 12.67 H Lymph # (Auto) 0.25 L [place] # (Auto) 0.97 H Eos # (Auto) 0.04 Baso # (Auto) 0.01 Immature Gran # (Auto) 0.08 Polychromasia 1+ Echinocytes 3+ VBG pH VBG pCO2 VBG pO2 VBG HCO3 VBG O2 Saturation VBG Base Excess Sodium 131 L Potassium 6.7 H* Chloride 98 Carbon Dioxide 13 L Anion Gap 20 H BUN 177 H Creatinine 12.39 H* Est Cr Clr Drug Dosing Not Reportable Est GFR ( Amer) 4.0 Est GFR (Non-Af Amer) 3.4 BUN/Creatinine Ratio 14.3 Glucose 76 POC Glucose 84 Lactate Calcium 7.4 L Phosphorus Magnesium Total Bilirubin 0.3 AST 24 ALT 20 Alkaline Phosphatase 58 Total Protein 5.9 L Albumin 3.0 L Globulin 2.9 Albumin/Globulin Ratio 1.0 Lipase 53 Procalcitonin Urine Color Urine Appearance Urine pH Ur Specific [place] Urine Protein Urine Glucose (UA) Urine Ketones Urine Blood Urine Nitrite Urine Bilirubin Urine Urobilinogen Ur Leukocyte Esterase Urine WBC (Auto) Urine RBC (Auto) U Hyaline Cast (Auto) U Epithel Cells (Auto) Urine Bacteria (Auto) Nasal Screen MRSA (PCR) Adenovirus (PCR) B. pertussis DNA (PCR) B.parapertussis DNA PCR C. pneumoniae DNA (PCR) Coronavirus OC43 (PCR) Coronavirus HKU1 (PCR) Coronavirus 229E (PCR) SARS-CoV-2 (PCR) Coronavirus NL63 (PCR) Human Metapneumovir PCR Influenza Type A (PCR) Influenza Type B (PCR) M. pneumoniae (PCR) Parainfluenza 1 (PCR) Parainfluenza 2 (PCR) Parainfluenza 3 (PCR) Parainfluenza 4 (PCR) RSV (PCR) Entero/Rhino (PCR) 01/06/23 01/06/23 01/06/23 07:41 07:41 07:41 WBC RBC Hgb Hct MCV MCH MCHC RDW Std Deviation RDW Coeff of Edilia Plt Count MPV Immature Gran % (Auto) Neut % (Auto) Lymph % (Auto) [place] % (Auto) Eos % (Auto) Baso % (Auto) Neut # (Auto) Lymph # (Auto) [place] # (Auto) Eos # (Auto) Baso # (Auto) Immature Gran # (Auto) Polychromasia Echinocytes VBG pH VBG pCO2 VBG pO2 VBG HCO3 VBG O2 Saturation VBG Base Excess Sodium 131 L Potassium TNP Chloride 98 Carbon Dioxide 13 L Anion Gap 20 H BUN 179 H Creatinine 12.02 H* D Est Cr Clr Drug Dosing Not Reportable Est GFR ( Amer) 4.1 Est GFR (Non-Af Amer) 3.6 BUN/Creatinine Ratio 14.9 Glucose 77 POC Glucose Lactate Calcium 7.4 L Phosphorus Magnesium Total Bilirubin 0.3 AST TNP ALT 21 Alkaline Phosphatase 55 Total Protein 6.0 Albumin 2.9 L Globulin 3.1 Albumin/Globulin Ratio 0.9 Lipase Procalcitonin 5.56 H Urine Color Urine Appearance Urine pH Ur Specific [place] Urine Protein Urine Glucose (UA) Urine Ketones Urine Blood Urine Nitrite Urine Bilirubin Urine Urobilinogen Ur Leukocyte Esterase Urine WBC (Auto) Urine RBC (Auto) U Hyaline Cast (Auto) U Epithel Cells (Auto) Urine Bacteria (Auto) Nasal Screen MRSA (PCR) Adenovirus (PCR) Not Detected B. pertussis DNA (PCR) Not Detected B.parapertussis DNA PCR Not Detected C. pneumoniae DNA (PCR) Not Detected Coronavirus OC43 (PCR) Not Detected Coronavirus HKU1 (PCR) Not Detected Coronavirus 229E (PCR) Not Detected SARS-CoV-2 (PCR) Not Detected Coronavirus NL63 (PCR) Not Detected Human Metapneumovir PCR Not Detected Influenza Type A (PCR) Not Detected Influenza Type B (PCR) Not Detected M. pneumoniae (PCR) Not Detected Parainfluenza 1 (PCR) Not Detected Parainfluenza 2 (PCR) Not Detected Parainfluenza 3 (PCR) Not Detected Parainfluenza 4 (PCR) Not Detected RSV (PCR) Not Detected Entero/Rhino (PCR) Not Detected 01/06/23 01/06/23 01/06/23 08:04 10:03 10:23 WBC RBC Hgb Hct MCV MCH MCHC RDW Std Deviation RDW Coeff of Edilia Plt Count MPV Immature Gran % (Auto) Neut % (Auto) Lymph % (Auto) [place] % (Auto) Eos % (Auto) Baso % (Auto) Neut # (Auto) Lymph # (Auto) [place] # (Auto) Eos # (Auto) Baso # (Auto) Immature Gran # (Auto) Polychromasia Echinocytes VBG pH VBG pCO2 VBG pO2 VBG HCO3 VBG O2 Saturation VBG Base Excess Sodium Potassium Chloride Carbon Dioxide Anion Gap BUN Creatinine Est Cr Clr Drug Dosing Est GFR ( Amer) Est GFR (Non-Af Amer) BUN/Creatinine Ratio Glucose POC Glucose 82 Lactate Calcium Phosphorus Magnesium Total Bilirubin AST ALT Alkaline Phosphatase Total Protein Albumin Globulin Albumin/Globulin Ratio Lipase Procalcitonin Urine Color Yellow Urine Appearance Clear Urine pH 5.5 Ur Specific [place] 1.014 Urine Protein Negative Urine Glucose (UA) Negative Urine Ketones Negative Urine Blood 3+ H Urine Nitrite Negative Urine Bilirubin Negative Urine Urobilinogen Negative Ur Leukocyte Esterase Negative Urine WBC (Auto) 0 Urine RBC (Auto) 10-30 H U Hyaline Cast (Auto) 0 U Epithel Cells (Auto) 0-5 Urine Bacteria (Auto) Negative Nasal Screen MRSA (PCR) Positive A Adenovirus (PCR) B. pertussis DNA (PCR) B.parapertussis DNA PCR C. pneumoniae DNA (PCR) Coronavirus OC43 (PCR) Coronavirus HKU1 (PCR) Coronavirus 229E (PCR) SARS-CoV-2 (PCR) Coronavirus NL63 (PCR) Human Metapneumovir PCR Influenza Type A (PCR) Influenza Type B (PCR) M. pneumoniae (PCR) Parainfluenza 1 (PCR) Parainfluenza 2 (PCR) Parainfluenza 3 (PCR) Parainfluenza 4 (PCR) RSV (PCR) Entero/Rhino (PCR) 01/06/23 01/06/23 01/06/23 11:10 11:10 11:10 WBC RBC Hgb Hct MCV MCH MCHC RDW Std Deviation RDW Coeff of Edilia Plt Count MPV Immature Gran % (Auto) Neut % (Auto) Lymph % (Auto) [place] % (Auto) Eos % (Auto) Baso % (Auto) Neut # (Auto) Lymph # (Auto) [place] # (Auto) Eos # (Auto) Baso # (Auto) Immature Gran # (Auto) Polychromasia Echinocytes VBG pH 7.22 L VBG pCO2 39 VBG pO2 38 VBG HCO3 16 VBG O2 Saturation < 60.0 VBG Base Excess -11.0 Sodium 134 L Potassium Cancelled TNP Chloride 102 Carbon Dioxide 16 L Anion Gap 16 H BUN 163 H Creatinine 10.05 H* D Est Cr Clr Drug Dosing Not Reportable Est GFR ( Amer) 5.1 Est GFR (Non-Af Amer) 4.4 BUN/Creatinine Ratio 16.2 Glucose 88 POC Glucose Lactate Calcium 7.7 L Phosphorus 6.4 H Magnesium 2.1 Total Bilirubin 0.4 AST Cancelled TNP ALT 20 Alkaline Phosphatase 57 Total Protein 5.4 L Albumin 2.8 L Globulin 2.6 Albumin/Globulin Ratio 1.1 Lipase Procalcitonin Urine Color Urine Appearance Urine pH Ur Specific [place] Urine Protein Urine Glucose (UA) Urine Ketones Urine Blood Urine Nitrite Urine Bilirubin Urine Urobilinogen Ur Leukocyte Esterase Urine WBC (Auto) Urine RBC (Auto) U Hyaline Cast (Auto) U Epithel Cells (Auto) Urine Bacteria (Auto) Nasal Screen MRSA (PCR) Adenovirus (PCR) B. pertussis DNA (PCR) B.parapertussis DNA PCR C. pneumoniae DNA (PCR) Coronavirus OC43 (PCR) Coronavirus HKU1 (PCR) Coronavirus 229E (PCR) SARS-CoV-2 (PCR) Coronavirus NL63 (PCR) Human Metapneumovir PCR Influenza Type A (PCR) Influenza Type B (PCR) M. pneumoniae (PCR) Parainfluenza 1 (PCR) Parainfluenza 2 (PCR) Parainfluenza 3 (PCR) Parainfluenza 4 (PCR) RSV (PCR) Entero/Rhino (PCR) 01/06/23 01/06/23 01/06/23 11:10 11:32 11:56 WBC RBC Hgb Hct MCV MCH MCHC RDW Std Deviation RDW Coeff of Edilia Plt Count MPV Immature Gran % (Auto) Neut % (Auto) Lymph % (Auto) [place] % (Auto) Eos % (Auto) Baso % (Auto) Neut # (Auto) Lymph # (Auto) [place] # (Auto) Eos # (Auto) Baso # (Auto) Immature Gran # (Auto) Polychromasia Echinocytes VBG pH VBG pCO2 VBG pO2 VBG HCO3 VBG O2 Saturation VBG Base Excess Sodium 135 L Potassium 5.6 H Chloride 103 Carbon Dioxide 16 L Anion Gap 16 H BUN 159 H Creatinine 9.72 H* D Est Cr Clr Drug Dosing Not Reportable Est GFR ( Amer) 5.3 Est GFR (Non-Af Amer) 4.6 BUN/Creatinine Ratio 16.4 Glucose 111 H POC Glucose 119 H Lactate 2.3 H* Calcium 7.6 L Phosphorus Magnesium Total Bilirubin AST ALT Alkaline Phosphatase Total Protein Albumin Globulin Albumin/Globulin Ratio Lipase Procalcitonin Urine Color Urine Appearance Urine pH Ur Specific [place] Urine Protein Urine Glucose (UA) Urine Ketones Urine Blood Urine Nitrite Urine Bilirubin Urine Urobilinogen Ur Leukocyte Esterase Urine WBC (Auto) Urine RBC (Auto) U Hyaline Cast (Auto) U Epithel Cells (Auto) Urine Bacteria (Auto) Nasal Screen MRSA (PCR) Adenovirus (PCR) B. pertussis DNA (PCR) B.parapertussis DNA PCR C. pneumoniae DNA (PCR) Coronavirus OC43 (PCR) Coronavirus HKU1 (PCR) Coronavirus 229E (PCR) SARS-CoV-2 (PCR) Coronavirus NL63 (PCR) Human Metapneumovir PCR Influenza Type A (PCR) Influenza Type B (PCR) M. pneumoniae (PCR) Parainfluenza 1 (PCR) Parainfluenza 2 (PCR) Parainfluenza 3 (PCR) Parainfluenza 4 (PCR) RSV (PCR) Entero/Rhino (PCR) 01/06/23 01/06/23 01/06/23 11:56 13:05 14:20 WBC RBC Hgb Hct MCV MCH MCHC RDW Std Deviation RDW Coeff of Edilia Plt Count MPV Immature Gran % (Auto) Neut % (Auto) Lymph % (Auto) [place] % (Auto) Eos % (Auto) Baso % (Auto) Neut # (Auto) Lymph # (Auto) [place] # (Auto) Eos # (Auto) Baso # (Auto) Immature Gran # (Auto) Polychromasia Echinocytes VBG pH VBG pCO2 VBG pO2 VBG HCO3 VBG O2 Saturation VBG Base Excess Sodium Potassium Chloride Carbon Dioxide Anion Gap BUN Creatinine Est Cr Clr Drug Dosing Est GFR ( Amer) Est GFR (Non-Af Amer) BUN/Creatinine Ratio Glucose POC Glucose 146 H Lactate 1.8 Calcium Phosphorus Magnesium Total Bilirubin AST 23 ALT Alkaline Phosphatase Total Protein Albumin Globulin Albumin/Globulin Ratio Lipase Procalcitonin Urine Color Urine Appearance Urine pH Ur Specific [place] Urine Protein Urine Glucose (UA) Urine Ketones Urine Blood Urine Nitrite Urine Bilirubin Urine Urobilinogen Ur Leukocyte Esterase Urine WBC (Auto) Urine RBC (Auto) U Hyaline Cast (Auto) U Epithel Cells (Auto) Urine Bacteria (Auto) Nasal Screen MRSA (PCR) Adenovirus (PCR) B. pertussis DNA (PCR) B.parapertussis DNA PCR C. pneumoniae DNA (PCR) Coronavirus OC43 (PCR) Coronavirus HKU1 (PCR) Coronavirus 229E (PCR) SARS-CoV-2 (PCR) Coronavirus NL63 (PCR) Human Metapneumovir PCR Influenza Type A (PCR) Influenza Type B (PCR) M. pneumoniae (PCR) Parainfluenza 1 (PCR) Parainfluenza 2 (PCR) Parainfluenza 3 (PCR) Parainfluenza 4 (PCR) RSV (PCR) Entero/Rhino (PCR) 01/06/23 01/06/23 01/06/23 17:20 17:20 17:22 WBC RBC Hgb Hct MCV MCH MCHC RDW Std Deviation RDW Coeff of Edilia Plt Count MPV Immature Gran % (Auto) Neut % (Auto) Lymph % (Auto) [place] % (Auto) Eos % (Auto) Baso % (Auto) Neut # (Auto) Lymph # (Auto) [place] # (Auto) Eos # (Auto) Baso # (Auto) Immature Gran # (Auto) Polychromasia Echinocytes VBG pH 7.33 L VBG pCO2 42 VBG pO2 47 VBG HCO3 22 VBG O2 Saturation 75.2 VBG Base Excess -3.7 Sodium Cancelled Potassium Cancelled Chloride Cancelled Carbon Dioxide Cancelled Anion Gap Cancelled BUN Cancelled Creatinine Cancelled Est Cr Clr Drug Dosing Cancelled Est GFR ( Amer) Cancelled Est GFR (Non-Af Amer) Cancelled BUN/Creatinine Ratio Cancelled Glucose Cancelled POC Glucose 210 H Lactate Calcium Cancelled Phosphorus Cancelled Magnesium Cancelled Total Bilirubin AST ALT Alkaline Phosphatase Total Protein Albumin Globulin Albumin/Globulin Ratio Lipase Procalcitonin Urine Color Urine Appearance Urine pH Ur Specific [place] Urine Protein Urine Glucose (UA) Urine Ketones Urine Blood Urine Nitrite Urine Bilirubin Urine Urobilinogen Ur Leukocyte Esterase Urine WBC (Auto) Urine RBC (Auto) U Hyaline Cast (Auto) U Epithel Cells (Auto) Urine Bacteria (Auto) Nasal Screen MRSA (PCR) Adenovirus (PCR) B. pertussis DNA (PCR) B.parapertussis DNA PCR C. pneumoniae DNA (PCR) Coronavirus OC43 (PCR) Coronavirus HKU1 (PCR) Coronavirus 229E (PCR) SARS-CoV-2 (PCR) Coronavirus NL63 (PCR) Human Metapneumovir PCR Influenza Type A (PCR) Influenza Type B (PCR) M. pneumoniae (PCR) Parainfluenza 1 (PCR) Parainfluenza 2 (PCR) Parainfluenza 3 (PCR) Parainfluenza 4 (PCR) RSV (PCR) Entero/Rhino (PCR) 01/06/23 01/07/23 01/07/23 19:02 14:58 14:58 WBC 12.39 H RBC 3.75 L Hgb 10.3 L Hct 29.9 L MCV 79.7 L MCH 27.5 MCHC 34.4 RDW Std Deviation 46.4 H RDW Coeff of Edilia 16.0 H Plt Count 231 MPV 10.0 Immature Gran % (Auto) 0.5 Neut % (Auto) 87.6 Lymph % (Auto) 4.1 [place] % (Auto) 5.7 Eos % (Auto) 1.9 Baso % (Auto) 0.2 Neut # (Auto) 10.86 H Lymph # (Auto) 0.51 L [place] # (Auto) 0.71 H Eos # (Auto) 0.23 Baso # (Auto) 0.02 Immature Gran # (Auto) 0.06 Polychromasia Echinocytes VBG pH VBG pCO2 VBG pO2 VBG HCO3 VBG O2 Saturation VBG Base Excess Sodium 139 142 Potassium 4.3 D 4.6 Chloride 105 108 H Carbon Dioxide 22 26 Anion Gap 12 H 8 BUN 115 H D 56 H D Creatinine 6.49 H* D 2.54 H D Est Cr Clr Drug Dosing 9.1 23.2 Est GFR ( Amer) 8.7 27.0 Est GFR (Non-Af Amer) 7.5 23.3 BUN/Creatinine Ratio 17.7 22.0 H Glucose 179 H 231 H POC Glucose Lactate Calcium 7.7 L 8.0 L Phosphorus 5.3 H 2.8 D Magnesium 1.8 1.5 L Total Bilirubin 0.3 AST 16 ALT 17 Alkaline Phosphatase 57 Total Protein 5.8 L Albumin 2.8 L Globulin 3.0 Albumin/Globulin Ratio 0.9 Lipase Procalcitonin Urine Color Urine Appearance Urine pH Ur Specific [place] Urine Protein Urine Glucose (UA) Urine Ketones Urine Blood Urine Nitrite Urine Bilirubin Urine Urobilinogen Ur Leukocyte Esterase Urine WBC (Auto) Urine RBC (Auto) U Hyaline Cast (Auto) U Epithel Cells (Auto) Urine Bacteria (Auto) Nasal Screen MRSA (PCR) Adenovirus (PCR) B. pertussis DNA (PCR) B.parapertussis DNA PCR C. pneumoniae DNA (PCR) Coronavirus OC43 (PCR) Coronavirus HKU1 (PCR) Coronavirus 229E (PCR) SARS-CoV-2 (PCR) Coronavirus NL63 (PCR) Human Metapneumovir PCR Influenza Type A (PCR) Influenza Type B (PCR) M. pneumoniae (PCR) Parainfluenza 1 (PCR) Parainfluenza 2 (PCR) Parainfluenza 3 (PCR) Parainfluenza 4 (PCR) RSV (PCR) Entero/Rhino (PCR) PG Care Time/CCT Total # of Minutes Spent Total Time Spent with Patient: Total time spent is greater than 50% in coordination of care (as documented) at patient's floor/unit and/or counseling patient: Prolonged Care Time Prolonged Care Time: Yes Total Prolonged Care Time: 80 Coding Level of Care Code 14045 SUB INP/OBS CARE 3/50MIN (25 - SIGNIFICANT, SEPARATELY IDENTIFIABLE ) Diagnoses Acute renal failure N17.9 Acute renal failure type: unspecified Hyperkalemia E87.5 Aspiration pneumonia J69.0 Aspiration pneumonia type: unspecified Laterality: unspecified laterality Lung location: unspecified part of lung Sepsis A41.9 High anion gap metabolic acidosis E87.29 Hyponatremia E87.1 Esophagitis K20.90 Hx of arterial ischemic stroke Z86.73 Left hemiparesis G81.94 DM II (diabetes mellitus, type II), controlled E11.9 HTN (hypertension) I10 Dementia F03.90 Gouty arthritis of both ankles M10.9 Acute metabolic encephalopathy G93.41 MRSA colonization Z22.322 Hypoglycemia E16.2 Hypomagnesemia E83.42 Constipation K59.00 Additional Codes Prolonged Care Time - Prolonged Care Time: Yes ([id number]) (1) Acute renal failure Acute renal failure type: unspecified Qualified Code(s): N17.9 - Acute kidney failure, unspecified (3) Aspiration pneumonia Aspiration pneumonia type: unspecified Laterality: unspecified laterality Lung location: unspecified part of lung Qualified Code(s): J69.0 - Pneumonitis due to inhalation of food and vomit
[2023-01-07] MEDS: SENNA 8.6 MG TAB PO SCH (12:56)
--- NOTE | 2023-01-07 13:22 | XCELERA ---
[id number] \\[email or web address]\[id number]
[2023-01-07 15:22] LABS: Basophils # (auto) 0.02 K/uL (0.00-0.20); Basophils % (auto) 0.2 %; Eosinophils # (auto) 0.23 K/uL (0.00-0.50); Eosinophils % (auto) 1.9 %; Hematocrit (blood only) 29.9 % (42.0-52.0); Hemoglobin 10.3 g/dl (14.0-18.0); Immature Granulocytes # (auto) 0.06 K/uL (0.01-0.20); Immature Granulocytes % (auto) 0.5 %; Lymphocytes # (auto) 0.51 K/uL (1.20-3.40); Lymphocytes % (auto) 4.1 %; Mean Corpuscular Hemoglobin 27.5 pg (25.0-34.0); Mean Corpuscular Hgb Conc 34.4 g/dL (32.0-36.0); Mean Corpuscular Volume 79.7 fL (80.0-100.0); Monocytes # (auto) 0.71 K/uL (0.11-0.59); Monocytes % (auto) 5.7 %; Neutrophils # (auto) 10.86 K/uL (1.40-6.50); Neutrophils % (auto) 87.6 %; Platelet Count 231 K/uL (130-400); RDW Standard Deviation 46.4 fL (36.4-46.3); Red Blood Count 3.75 M/uL (4.70-6.10); White Blood Count 12.39 K/ul (4.8-10.8)
[2023-01-07 15:47] LABS: Albumin Globulin Ratio 0.9 (0.9-2); Albumin Level 2.8 gm/dl (3.4-5.0); Bilirubin,Total 0.3 mg/dl (0.2-1.0); Creatinine Clr Calc Pharmacy 23.2 ml/min; Est GFR (Non-African American) 23.3 ml/min; Magnesium 1.5 mg/dl (1.7-2.4); Phosphorus 2.8 mg/dl (2.5-4.9); Potassium 4.6 mmol/L (3.5-5.1); Total Protein 5.8 gm/dl (6.0-8.3)
[2023-01-07] MEDS: PLASMA-LYTE A 1,000 ML IV SCH (15:53)
[2023-01-07] MEDS: MAGNESIUM SULFATE / D5W 1 GM/100 ML BAG IV SCH ×2 (20:41→22:14)
[2023-01-07] MEDS: QUEtiapine FUMARATE 25 MG TABLET PO SCH (21:16)
[2023-01-07] MEDS: QUEtiapine FUMARATE 100 MG TABLET PO SCH (21:16)
[2023-01-08] MEDS: INSULIN ASPART PER UNIT CHARGE SC SCH ×6 (03:10→23:23)
[2023-01-08] MEDS: PLASMA-LYTE A 1,000 ML IV SCH (03:13)
[2023-01-08] MEDS ORDERED: PIPERACILLIN/TAZOBACTAM 4.5 GM in DEXTROSE 5% 100 ML IV ONE (07:00)
[2023-01-08 07:32] LABS: BUN Creatinine Ratio 20.8 (10-20); Calcium 7.8 mg/dl (8.6-10.3); Creatinine Clr Calc Pharmacy 38.2 ml/min; Est GFR (African American) 49.4 ml/min; Est GFR (Non-African American) 42.6 ml/min; Magnesium 1.8 mg/dl (1.7-2.4); Potassium 4.4 mmol/L (3.5-5.1); Uric Acid 5.8 mg/dl (2.6-7.2)
[2023-01-08] MEDS: LINEZOLID 600 MG TAB PO SCH ×2 (08:08→21:18)
[2023-01-08] MEDS: ASPIRIN 81 MG ECTAB PO SCH (08:08)
[2023-01-08] MEDS: DIVALPROEX DELAY RELEASE 125 MG TABEC PO SCH ×3 (08:08→21:18)
[2023-01-08] MEDS: predniSONE 10 MG TABLET PO SCH (08:08)
[2023-01-08 08:14] LABS: Estimated Average Glucose 143 mg/dl; Hemoglobin A1C 6.6 % (4.5-5.6)
--- NOTE | 2023-01-08 09:21 | Nephrology Progress Note ---
Date of Service January 08, 2023 Assessment & Plan (1) Acute renal failure: Plan: * 1st [facility] Hospitalization. Baseline Cr is unknown * Brisk diuresis following Astudillo catheter insertion points to post obstructive cause * Net 6.3 L UO since Astudillo placed * Creatinine has improved from 12.3-->1.5 following Astudillo catheter insertion * Abdominal CT films reviewed. Only mild distention of renal collecting system after Astudillo placed * Urine microscopy is negative for cellular casts * Poor snf dialysis candidate due to h/o prior CVA, L hemiparesis, intermediate status and refusal of routine venipuncture. Patient states this morning that he does not want any further medical procedures that require needles including dialysis * Urology evaluation is indicated, however, suspect patient will not consent to any intervention since he frequently refuses routine labs. Consider alpha maranda therapy and technician terminal and repeater Astudillo catheter * Patient might benefit from Palliative Care consultation to define goals of care and establish POLST * No further Nephrology evaluation indicated at this time. Will sign off. Please call if further assistance is needed (2) Hyperkalemia: Plan: * Corrected w/ medical management. Lokelma has been stopped (3) Aspiration pneumonia: Plan: * On IV Unasyn Admission and Anticipated Discharge Date Admission Date: January 06, 2023 Subjective Mr. Maynard was evaluated in his hospital room this morning. He was alert and denied angina or dyspnea. Astudillo catheter remains in place draining yellow urine. Review of Systems Eyes: no problem reported Ear, Nose, Mouth, Throat: no problem reported Respiratory: no cough and no dyspnea Cardiovascular: no chest pain Gastrointestinal: no abdominal pain, no vomiting and no diarrhea/loose stools Genitourinary: + urinary hesitancy Physical Exam Constitutional: not in distress Eyes: PERRL, conjunctivae normal, anicteric sclerae ENMT: external ear and nose normal, oropharynx normal Neck: trachea midline, no thyromegaly Respiratory: Auscultation: lungs clear to auscultation bilaterally Cardiovascular: Rate/Rhythm: regular rate and regular rhythm Gastrointestinal (Abdomen): normal bowel sounds, soft, nontender, no hepatosplenomegaly Skin: no rashes, warm and dry Results & Data Vital Signs (Past 12 Hours) Vital Signs Temp Pulse Pulse Resp BP Pulse Ox O2 Del Method 01/08/23 07:35 36.7 C 70 18 145/70 H 97 Room Air 01/08/23 07:31 70 18 145/70 H 97 Room Air 01/08/23 02:56 36.5 C 57 L 18 113/55 L 96 Room Air 01/07/23 23:31 36.9 C 100 H 18 107/48 L 97 Room Air 01/07/23 23:22 84 Laboratory Results Laboratory Tests 01/08/23 06:07 Sodium 144 Potassium 4.4 Chloride 111 H Carbon Dioxide 28 BUN 32 H D Creatinine 1.54 H D Glucose 131 H Calcium 7.8 L Magnesium 1.8 PG Care Time/CCT Total # of Minutes Spent Total Time Spent with Patient: Total time spent is greater than 50% in coordination of care (as documented) at patient's floor/unit and/or counseling patient: Coding Level of Care Code 63821 SUB INP/OBS CARE 3/50MIN Diagnoses Acute renal failure N17.9 Acute renal failure type: unspecified Hyperkalemia E87.5 Aspiration pneumonia J69.0 Aspiration pneumonia type: unspecified Laterality: unspecified laterality Lung location: unspecified part of lung (1) Acute renal failure Acute renal failure type: unspecified Qualified Code(s): N17.9 - Acute kidney failure, unspecified (3) Aspiration pneumonia Aspiration pneumonia type: unspecified Laterality: unspecified laterality Lung location: unspecified part of lung Qualified Code(s): J69.0 - Pneumonitis due to inhalation of food and vomit
[2023-01-08] MEDS: SENNA 8.6 MG TAB PO SCH (09:29)
[2023-01-08] MEDS ORDERED: MAGNESIUM SULFATE / D5W 1 GM/100 ML BAG IV ONE (09:56)
[2023-01-08] MEDS: CLOPIDOGREL BISULFATE 75 MG TAB PO SCH (10:45)
[2023-01-08] MEDS: PANTOprazole 40 MG TAB PO SCH ×2 (10:45→21:18)
[2023-01-08] MEDS: PIPERACILLIN/TAZOBACTAM 4.5 GM in DEXTROSE 5% 100 ML IV SCH ×2 (13:11→21:17)
--- NOTE | 2023-01-08 13:22 | Electrocardiogram Report ---
Test Reason : Blood Pressure : / mmHG Vent. Rate : 096 BPM Atrial Rate : 096 BPM P-R Int : 132 ms QRS Dur : 112 ms QT Int : 362 ms P-R-T Axes : 024 096 051 degrees QTc Int : 457 ms Poor data quality, interpretation may be adversely affected Sinus rhythm with Premature supraventricular complexes Right bundle branch block Abnormal ECG When compared with ECG of 06-JAN-2023 11:19, Premature supraventricular complexes are now Present Confirmed by Humberto Shaw ([id number] on 01/08/2023 1:22:04 PM Referred By: [facility] Confirmed By:Vijay Shaw
--- NOTE | 2023-01-08 15:52 | Hospitalist Progress Note ---
Date of Service January 08, 2023 Assessment & Plan (1) Acute renal failure: Plan: Presenting Cr 12 with BUN of 179 MED/ARF likely combination of obstructive uropathy (severe urinary retention prior to kaba catheter insertion) as well as pre-renal factors Appears severely volume contracted on examination 2 L of urine output immediately following kaba placement Creatinine is rapidly improving with IV hydration & kaba placement Nephrology was consulted; appreciate their assistance Cont IV fluids and supportive care Likely with BPH leading to urinary retention --> start flomax 0.4mg daily discontinue IV fluids and monitor labs (2) Hyperkalemia: Plan: 2nd #1 - resolved with supportive care, fluids, etc aldactone use likely contributed as well (3) Aspiration pneumonia: Plan: By report pt had had vomiting episodes at [facility] CT a/p (lung cuts) show the b/l basilar infiltrates Cont zosyn MRSA screen is +; thus, use zyvox 600 BID for MRSA coverage will need to follow QTc carefully Patient had an episode of choking today Consult speech (4) Sepsis: Plan: 2nd aspiration pneumonia cont abx as above blood cultures negative (5) High anion gap metabolic acidosis: Plan: 2nd acute renal failure and lactic acidosis Resolved (6) Hyponatremia: Plan: 2nd to ARF resolved lowest Na level was 131 upon ER presentation now 142 on afternoon labs (7) Esophagitis: Plan: Noted on CT of the abd/pelvis PPI (8) Hx of arterial ischemic stroke: Plan: resume plavix cont asa both for secondary prevention (9) Left hemiparesis: Plan: 2nd to prior stroke cont asa for secondary stroke prevention (10) DM II (diabetes mellitus, type II), controlled: Plan: Novolog SSI add basal insulin if necessary A1c 6.6 (11) HTN (hypertension): Plan: HOLD all anti-hypertensives at this time aldactone likely exacerbated the hyperkalemia (12) Dementia: Plan: Continue Seroquel and TID Depakote (13) Gouty arthritis of both ankles: Plan: exam c/w acute gout - likely due to ARF on prednisone started 01/07 (14) Acute metabolic encephalopathy: Plan: 2nd to pneumonia, ARF/uremia, etc. 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 + (16) Hypoglycemia: Plan: present on admission likely due to stress of infection/illness, poor glycogen serves, etc could consider cortisol level BSGs normal since being fluid resuscitated, etc (17) Hypomagnesemia: Plan: replaced 2 grams mag sulfate IV (18) Constipation: Plan: add senna 2 tabs daily Plan patient is w/o capacity at this time very confused, little insight into his presentation, not oriented to place/time Mr Maynard has a developmentally disabled daughter with cerebral palsy who lives in a SNF has a step-daughter that is now has a son with whom he is estranged pt's lives at same alf patient would benefit from palliative care consult to refine goals of care Ms Thacker suggested that patient has been failing to thrive of late Admission and Anticipated Discharge Date Admission Date: January 06, 2023 Subjective Patient feels well overall. Denies chest pain or shortness of breath. Nurse notified me later on today that he had an episode of choking. Review of Systems Review of Systems: All systems reviewed & are unremarkable except as noted in Subjective Physical Exam Physical Exam: General: Awake, conversant Heart: S1, S2/regular rate and rhythm, no murmur rubs or gallops Lungs: Clear to auscultation bilaterally. Normal effort Abdomen: Soft/nontender/nondistended. No hepatosplenomegaly. Kaba draining clear liquid Extremities: No clubbing/cyanosis. No edema Behavior: Appropriate, cooperative Results & Data Results & Data Vital Signs (Past 12 Hours) Vital Signs Temp Pulse Pulse Resp BP Pulse Ox Pulse Ox 01/08/23 13:00 95 01/08/23 11:36 36.8 C 64 20 132/72 95 01/08/23 08:00 61 01/08/23 08:00 01/08/23 07:35 36.7 C 70 18 145/70 H 97 01/08/23 07:31 70 18 145/70 H 97 O2 Del Method 01/08/23 13:00 01/08/23 11:36 Room Air 01/08/23 08:00 01/08/23 08:00 Room Air 01/08/23 07:35 Room Air 01/08/23 07:31 Room Air Laboratory Results Abnormal lab results 01/07/23 01/08/23 01/08/23 Range/Units 14:58 06:07 06:07 Chloride 108 H 111 H (98-107) mmol/L BUN 56 H D 32 H D (6-23) mg/dl Creatinine 2.54 H D 1.54 H D (0.6-1.4) mg/dl BUN/Creatinine Ratio 22.0 H 20.8 H (10-20) Glucose 231 H 131 H (70-99(Fasting)) mg/dl POC Glucose 137 H (70-99) mg/dl Hemoglobin A1c (4.5-5.6) % Calcium 8.0 L 7.8 L (8.6-10.3) mg/dl Magnesium 1.5 L (1.7-2.4) mg/dl Total Protein 5.8 L (6.0-8.3) gm/dl Albumin 2.8 L (3.4-5.0) gm/dl 01/08/23 Range/Units 06:08 Chloride (98-107) mmol/L BUN (6-23) mg/dl Creatinine (0.6-1.4) mg/dl BUN/Creatinine Ratio (10-20) Glucose (70-99(Fasting)) mg/dl POC Glucose (70-99) mg/dl Hemoglobin A1c 6.6 H (4.5-5.6) % Calcium (8.6-10.3) mg/dl Magnesium (1.7-2.4) mg/dl Total Protein (6.0-8.3) gm/dl Albumin (3.4-5.0) gm/dl PG Care Time/CCT Total # of Minutes Spent Total Time Spent with Patient: Total time spent is greater than 50% in coordination of care (as documented) at patient's floor/unit and/or counseling patient: Coding Level of Care Code 94924 SUB INP/OBS CARE 235MIN Diagnoses Acute renal failure N17.9 Acute renal failure type: unspecified Hyperkalemia E87.5 Aspiration pneumonia J69.0 Aspiration pneumonia type: unspecified Laterality: unspecified laterality Lung location: unspecified part of lung Sepsis A41.9 High anion gap metabolic acidosis E87.29 Hyponatremia E87.1 Esophagitis K20.90 Hx of arterial ischemic stroke Z86.73 Left hemiparesis G81.94 DM II (diabetes mellitus, type II), controlled E11.9 HTN (hypertension) I10 Dementia F03.90 Gouty arthritis of both ankles M10.9 Acute metabolic encephalopathy G93.41 MRSA colonization Z22.322 Hypoglycemia E16.2 Hypomagnesemia E83.42 Constipation K59.00 (1) Acute renal failure Acute renal failure type: unspecified Qualified Code(s): N17.9 - Acute kidney failure, unspecified (3) Aspiration pneumonia Aspiration pneumonia type: unspecified Laterality: unspecified laterality Lung location: unspecified part of lung Qualified Code(s): J69.0 - Pneumonitis due to inhalation of food and vomit
[2023-01-08] MEDS: QUEtiapine FUMARATE 25 MG TABLET PO SCH (21:18)
[2023-01-08] MEDS: QUEtiapine FUMARATE 100 MG TABLET PO SCH (21:18)
[2023-01-09] MEDS: INSULIN ASPART PER UNIT CHARGE SC SCH ×5 (04:07→20:15)
[2023-01-09] MEDS: PIPERACILLIN/TAZOBACTAM 4.5 GM in DEXTROSE 5% 100 ML IV SCH ×3 (04:07→20:16)
[2023-01-09] MEDS: PANTOprazole 40 MG TAB PO SCH ×2 (08:25→20:17)
[2023-01-09] MEDS: DIVALPROEX DELAY RELEASE 125 MG TABEC PO SCH ×3 (08:26→20:16)
[2023-01-09] MEDS: predniSONE 10 MG TABLET PO SCH (08:26)
[2023-01-09] MEDS: SENNA 8.6 MG TAB PO SCH (08:26)
[2023-01-09] MEDS: LINEZOLID 600 MG TAB PO SCH ×2 (08:26→20:17)
[2023-01-09] MEDS: CLOPIDOGREL BISULFATE 75 MG TAB PO SCH (08:27)
[2023-01-09] MEDS: ASPIRIN 81 MG ECTAB PO SCH (08:27)
--- NOTE | 2023-01-09 17:24 | Hospitalist Progress Note ---
Date of Service January 09, 2023 Assessment & Plan (1) Acute renal failure: Plan: Presenting Cr 12 with BUN of 179 MED/ARF likely combination of obstructive uropathy (severe urinary retention prior to kaba catheter insertion) as well as pre-renal factors Appears severely volume contracted on examination 2 L of urine output immediately following kaba placement Creatinine is rapidly improving with IV hydration & kaba placement No labs available today Nephrology was consulted; appreciate their assistance discontinue IV fluids Likely with BPH leading to urinary retention --> start flomax 0.4mg daily check labs in a.m. (2) Hyperkalemia: Plan: 2nd #1 - resolved with supportive care, fluids, etc aldactone use likely contributed as well (3) Aspiration pneumonia: Plan: By report pt had had vomiting episodes at [facility] CT a/p (lung cuts) show the b/l basilar infiltrates Cont zosyn MRSA screen is +; thus, use zyvox 600 BID for MRSA coverage will need to follow QTc carefully Patient had an episode of choking today speech on board (4) Sepsis: Plan: 2nd aspiration pneumonia cont abx as above blood cultures negative (5) High anion gap metabolic acidosis: Plan: 2nd acute renal failure and lactic acidosis Resolved (6) Hyponatremia: Plan: 2nd to ARF resolved lowest Na level was 131 upon ER presentation now 142 (7) Esophagitis: Plan: Noted on CT of the abd/pelvis PPI (8) Hx of arterial ischemic stroke: Plan: resume plavix cont asa both for secondary prevention (9) Left hemiparesis: Plan: 2nd to prior stroke cont asa for secondary stroke prevention (10) DM II (diabetes mellitus, type II), controlled: Plan: Novolog SSI add basal insulin if necessary A1c 6.6 (11) HTN (hypertension): Plan: HOLD all anti-hypertensives at this time aldactone likely exacerbated the hyperkalemia (12) Dementia: Plan: Continue Seroquel and TID Depakote (13) Gouty arthritis of both ankles: Plan: exam c/w acute gout - likely due to ARF on prednisone started 01/07. We will discontinue tomorrow (14) Acute metabolic encephalopathy: Plan: 2nd to pneumonia, ARF/uremia, etc. 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 Start metoprolol 12.5 mg p.o. twice daily. Recheck potassium and magnesium tomorrow (18) Constipation: Plan: add senna 2 tabs daily Plan patient is w/o capacity at this time very confused, little insight into his presentation, not oriented to place/time Mr Maynard has a developmentally disabled daughter with cerebral palsy who lives in a SNF has a step-daughter that is now has a son with whom he is estranged pt's lives at same half-way patient would benefit from palliative care consult to refine goals of care Ms Thacker suggested that patient has been failing to thrive of late Palliative care consult. Admission and Anticipated Discharge Date Admission Date: January 06, 2023 Subjective patient feels well today. Denies chest pain or shortness of breath. Nurse informed me that his heart rate went up to 130s earlier But quickly came down to the 60s. He has had episodes of SVT. Review of Systems Review of Systems: All systems reviewed & are unremarkable except as noted in Subjective Physical Exam Physical Exam: General: Awake, conversant Heart: S1, S2/regular rate and rhythm, no murmur rubs or gallops Lungs: Clear to auscultation bilaterally. Normal effort Abdomen: Soft/nontender/nondistended. No hepatosplenomegaly. Kaba draining clear liquid Extremities: No clubbing/cyanosis. No edema Behavior: Appropriate, cooperative Results & Data Results & Data Vital Signs (Past 12 Hours) Vital Signs Temp Pulse Pulse Resp BP Pulse Ox O2 Del Method 01/09/23 15:39 36.8 C 66 13 131/72 97 Room Air 01/09/23 11:53 36.9 C 61 18 135/73 95 Room Air 01/09/23 07:44 36.9 C 58 L 19 132/57 L 95 Room Air 01/09/23 07:21 57 L PG Care Time/CCT Total # of Minutes Spent Total Time Spent with Patient: Total time spent is greater than 50% in coordination of care (as documented) at patient's floor/unit and/or counseling patient: Coding Level of Care Code 29799 SUB INP/OBS CARE 235MIN Diagnoses Acute renal failure N17.9 Acute renal failure type: unspecified Hyperkalemia E87.5 Aspiration pneumonia J69.0 Aspiration pneumonia type: unspecified Laterality: unspecified laterality Lung location: unspecified part of lung Sepsis A41.9 High anion gap metabolic acidosis E87.29 Hyponatremia E87.1 Esophagitis K20.90 Hx of arterial ischemic stroke Z86.73 Left hemiparesis G81.94 DM II (diabetes mellitus, type II), controlled E11.9 HTN (hypertension) I10 Dementia F03.90 Gouty arthritis of both ankles M10.9 Acute metabolic encephalopathy G93.41 MRSA colonization Z22.322 Hypoglycemia E16.2 Hypomagnesemia E83.42 Constipation K59.00 (1) Acute renal failure Acute renal failure type: unspecified Qualified Code(s): N17.9 - Acute kidney failure, unspecified (3) Aspiration pneumonia Aspiration pneumonia type: unspecified Laterality: unspecified laterality Lung location: unspecified part of lung Qualified Code(s): J69.0 - Pneumonitis due to inhalation of food and vomit
[2023-01-09] MEDS: QUEtiapine FUMARATE 100 MG TABLET PO SCH (20:17)
[2023-01-09] MEDS: METOPROLOL TARTRATE 25 MG TAB PO SCH (20:17)
[2023-01-09] MEDS: QUEtiapine FUMARATE 25 MG TABLET PO SCH (20:18)
[2023-01-09 21:54] LABS: Calcium 7.7 mg/dl (8.6-10.3); Creatinine Clr Calc Pharmacy 35.7 ml/min; Est GFR (African American) 45.4 ml/min; Est GFR (Non-African American) 39.2 ml/min; Magnesium 1.5 mg/dl (1.7-2.4); Potassium 4.8 mmol/L (3.5-5.1)
[2023-01-10] MEDS: INSULIN ASPART PER UNIT CHARGE SC SCH ×6 (01:03→20:29)
[2023-01-10] MEDS: PIPERACILLIN/TAZOBACTAM 4.5 GM in DEXTROSE 5% 100 ML IV SCH ×3 (04:57→20:43)
[2023-01-10 07:09] LABS: BUN Creatinine Ratio 15.4 (10-20); Creatinine Clr Calc Pharmacy 39.5 ml/min; Est GFR (African American) 51.4 ml/min; Est GFR (Non-African American) 44.3 ml/min; Magnesium 1.4 mg/dl (1.7-2.4); Potassium 4.8 mmol/L (3.5-5.1)
[2023-01-10] MEDS: CLOPIDOGREL BISULFATE 75 MG TAB PO SCH (09:29)
[2023-01-10] MEDS: ASPIRIN 81 MG ECTAB PO SCH (09:29)
[2023-01-10] MEDS: DIVALPROEX DELAY RELEASE 125 MG TABEC PO SCH ×3 (09:30→20:45)
[2023-01-10] MEDS: LINEZOLID 600 MG TAB PO SCH ×2 (09:30→20:45)
[2023-01-10] MEDS: METOPROLOL TARTRATE 25 MG TAB PO SCH ×2 (09:31→20:45)
[2023-01-10] MEDS: PANTOprazole 40 MG TAB PO SCH ×2 (09:32→20:45)
[2023-01-10] MEDS: predniSONE 10 MG TABLET PO SCH (09:32)
[2023-01-10] MEDS: SENNA 8.6 MG TAB PO SCH (09:33)
[2023-01-10] MEDS: MAGNESIUM OXIDE 400 MG TAB PO SCH ×2 (10:01→20:44)
[2023-01-10] MEDS: MAGNESIUM SULFATE / D5W 1 GM/100 ML BAG IV SCH ×4 (10:03→20:43)
--- NOTE | 2023-01-10 11:53 | Palliative Care Consultation ---
Date of Consultation January 10, 2023 Assessment & Plan (1) Palliative care encounter: I talked with Mr. Myanard about his illness. He knows that he was at [facility] and is now in the hospital. He is not able to tell me what's wrong with him or why he came to the hospital. He mentions repeatedly that he doesn't want "any needles" and has declined blood sugar checks. He tells me that at [facility] he said that he would leave and get a ride home before he would have any needles. He then mentions that he doesn't have a home to go to as his apartment was emptied and his belongings are in storage. I asked him what he thought would happen if he completely refused needles and he told me that he didn't know. We discussed concern that he could without treatment which frequently involves needles. His response was that when it was his time to go, he was ok with that. I also asked him who would make decisions about his medical care if he were unable to do so and he told me that his niece, Sunitha Thacker, would do that. He indicated that she was his POA. I tried to call Sunitha but there was no answer. I was later able to reach Sunitha. She confirms that she does have medical POA for Ed. I reviewed the conversation that Ed and I had with her. She initially expressed surprise but then said that he had said similar things to her when his thinking was better. She feels that since his daughter , he has lost his will to live. We discussed options to continue current care, which may involve additional needle sticks versus option to focus on comfort and symptom management which would reduce or eliminate needle sticks. She asked about hospice care. We reviewed hospice which could be appropriate for him if he wanted a full comfort focused approach. At this time, Sunitha feels that best option would be to continue current level of care and consider decisions as they come up. She does note that he has been clear about no resuscitation and that he would not want aggressive interventions in general, but wants to see how he does for now and consider other decisions as they arise. History of Present Illness Reason for Consultation: goals of care Requesting Physician: Dr. Saunders Attending Physician: Ken Saunders MD History of Present Illness 77 yo gentleman with history of diabetes, cerebrovascular disease, dementia and dysphagia. He presented from [facility] with altered mental status, hypoglycemia and MED. Creatinine was 12.39 on admission and has improved to 1.49 today with kaba catheter and hydration, but he was found to have bibasilar infiltrates and is being treated for aspiration pneumonia and sepsis. Speech therapy recommended aspiration precautions and easy to chew diet with supervision at meals. He is eating lunch at the time of my visit without difficulty. He remembers choking episode that he had in the last few days. He denies pain or dyspnea. Allergies Allergy/AdvReac Type Severity Reaction Status Date / Time No Known Allergies Allergy Verified 01/06/23 08:59 Home Medications Medication Instructions Recorded Confirmed Type Insta-Glucose See Rx Instructions .Route .COMPLEX 01/06/23 01/06/23 History Milk Of Magnesia Susp 1200mg/15ml See Rx Instructions .Route .COMPLEX 01/06/23 01/06/23 History acetaminophen 325 mg tablet 650 mg PO Q6H PRN Mild Pain (Scale 01/06/23 01/06/23 History Score 1-4) acetaminophen 325 mg tablet 650 mg PO Q6H PRN elevated temp 01/06/23 01/06/23 History albuterol sulfate 90 mcg/actuation 2 puff inhalation Q6H PRN 01/06/23 01/06/23 History aerosol inhaler shortness of breath aspirin 81 mg tablet,delayed 81 mg PO DAILY 01/06/23 01/06/23 History release atorvastatin 20 mg tablet 20 mg PO DAILY 01/06/23 01/06/23 History bisacodyl 10 mg rectal suppository See Rx Instructions .Route 01/06/23 01/06/23 History .COMPLEX PRN Constipation clopidogrel 75 mg tablet 75 mg PO DAILY 01/06/23 01/06/23 History divalproex 125 mg tablet,delayed 125 mg PO TID 01/06/23 01/06/23 History release escitalopram oxalate 10 mg tablet 10 mg PO DAILY 01/06/23 01/06/23 History ferrous sulfate 325 mg (65 mg 325 mg PO QAM 01/06/23 01/06/23 History iron) tablet glucagon HCl 1 mg solution for See Rx Instructions .Route .COMPLEX 01/06/23 01/06/23 History injection (Glucagon (HCl) Emergency Kit) glucagon HCl 1 mg solution for See Rx Instructions .Route .COMPLEX 01/06/23 01/06/23 History injection (Glucagon (HCl) Emergency Kit) hydroxyzine pamoate 25 mg capsule 50 mg PO Q24H PRN Anxiety 01/06/23 01/06/23 History pantoprazole 40 mg tablet,delayed 40 mg PO BID 01/06/23 01/06/23 History release quetiapine 25 mg tablet 100 mg PO HS 01/06/23 01/06/23 History quetiapine 50 mg tablet 50 mg PO HS 01/06/23 01/06/23 History sodium phosphates 19 gram-7 See Rx Instructions .Route .COMPLEX 01/06/23 01/06/23 History gram/118 mL enema (Enema) spironolactone 25 mg tablet 25 mg PO DAILY 01/06/23 01/06/23 History Patient History Medical History Aspiration pneumonia Social History Smoking Status: Unknown if ever smoked Hx Alcohol Use: No Hx Substance Use: No Preferred Language: Cameroonian Communication Ability: Impaired Communication Ability Comment: pt has altered mental status Student Affairs Dean Required: No Beliefs That Will Affect Care: None Current Living Situation: Correction Feels Safe at Home: Yes Assistive Devices: Walker and Wheelchair Review of Systems Review of Systems: ESAS Pain 0/3 Dyspnea 0/3 Nausea 0/3 Drowsiness 0/3 Physical Exam Constitutional: no acute distress Respiratory: normal respiratory effort; no labored breathing Cardiovascular: Rate/Rhythm: regular rate and regular rhythm Psychiatric: Orientation: oriented x 3 Genitourinary: Kaba catheter Results & Data Vital Signs (Past 12 Hours) Vital Signs Temp Pulse Pulse Resp BP Pulse Ox O2 Del Method 01/10/23 08:15 97.7 F 56 L 18 138/79 94 Room Air 01/10/23 07:36 56 L 01/10/23 04:08 97.9 F 54 L 18 149/72 H 96 Room Air PG Care Time/CCT Total # of Minutes Spent Total Time Spent: 65 Total Time Spent with Patient: Total time spent is greater than 50% in coordination of care (as documented) at patient's floor/unit and/or counseling patient: [id number] goals of care, surrogate decision maker, code status, patient and family education and support Coding Level of Care Code 01811 INT INP/OBS CARE MIN Diagnoses Palliative care encounter Z51.5
--- NOTE | 2023-01-10 16:39 | Hospitalist Progress Note ---
Date of Service January 10, 2023 Assessment & Plan (1) Acute renal failure: Plan: Presenting Cr 12 with BUN of 179 MED/ARF likely combination of obstructive uropathy (severe urinary retention prior to kaba catheter insertion) as well as pre-renal factors Appears severely volume contracted on examination 2 L of urine output immediately following kaba placement Creatinine is rapidly improving with IV hydration & kaba placement No labs available today Nephrology was consulted; appreciate their assistance. Nephrology signed off creatinine trending down despite discontinuation of IV fluids Likely with BPH leading to urinary retention --> start flomax 0.4mg daily check labs in a.m. (2) Hyperkalemia: Plan: 2nd #1 - resolved with supportive care, fluids, etc aldactone use likely contributed as well (3) Aspiration pneumonia: Plan: By report pt had had vomiting episodes at [facility] CT a/p (lung cuts) show the b/l basilar infiltrates Cont zosyn MRSA screen is +; thus, use zyvox 600 BID for MRSA coverage will need to follow QTc carefully Patient had an episode of choking today speech on board (4) Sepsis: Plan: 2nd aspiration pneumonia cont abx as above blood cultures negative (5) High anion gap metabolic acidosis: Plan: 2nd acute renal failure and lactic acidosis Resolved (6) Hyponatremia: Plan: 2nd to ARF resolved lowest Na level was 131 upon ER presentation now 142 (7) Esophagitis: Plan: Noted on CT of the abd/pelvis PPI (8) Hx of arterial ischemic stroke: Plan: resume plavix cont asa both for secondary prevention (9) Left hemiparesis: Plan: 2nd to prior stroke cont asa for secondary stroke prevention (10) DM II (diabetes mellitus, type II), controlled: Plan: Novolog SSI add basal insulin if necessary A1c 6.6 (11) HTN (hypertension): Plan: HOLD all anti-hypertensives at this time aldactone likely exacerbated the hyperkalemia (12) Dementia: Plan: Continue Seroquel and TID Depakote (13) Gouty arthritis of both ankles: Plan: exam c/w acute gout - likely due to ARF was treated with prednisone during the hospital stay. Discontinue. (14) Acute metabolic encephalopathy: Plan: 2nd to pneumonia, ARF/uremia, etc. 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 Start metoprolol 12.5 mg p.o. twice daily. Recheck potassium and magnesium tomorrow (18) Constipation: Plan: add senna 2 tabs daily Plan Palliative care saw the patient. He is a DNR/DNI. Plan is to continue current treatment for now. However if condition declines, his POA and himself agreed to switching to comfort care. Plan is to discharge him back to where he came from. payment manager working to find out if he can go back over the weekend. Admission and Anticipated Discharge Date Admission Date: January 06, 2023 Subjective patient feels well. Denies chest pain or shortness of breath. Has no complaints at this time Review of Systems Review of Systems: All systems reviewed & are unremarkable except as noted in Subjective Physical Exam Physical Exam: General: Awake, conversant Heart: S1, S2/regular rate and rhythm, no murmur rubs or gallops Lungs: Clear to auscultation bilaterally. Normal effort Abdomen: Soft/nontender/nondistended. No hepatosplenomegaly. Kaba draining clear liquid Extremities: No clubbing/cyanosis. No edema Behavior: Appropriate, cooperative Results & Data Results & Data Vital Signs (Past 12 Hours) Vital Signs Temp Pulse Pulse Resp BP Pulse Ox O2 Del Method 01/10/23 16:05 36.8 C 65 18 131/75 95 Room Air 01/10/23 12:05 36.6 C 64 19 141/76 H 93 Room Air 01/10/23 08:15 36.5 C 56 L 18 138/79 94 Room Air 01/10/23 07:36 56 L Coding Level of Care Code 93421 SUB INP/OBS CARE 2/35MIN Diagnoses Acute renal failure N17.9 Acute renal failure type: unspecified Hyperkalemia E87.5 Aspiration pneumonia J69.0 Aspiration pneumonia type: unspecified Laterality: unspecified laterality Lung location: unspecified part of lung Sepsis A41.9 High anion gap metabolic acidosis E87.29 Hyponatremia E87.1 Esophagitis K20.90 Hx of arterial ischemic stroke Z86.73 Left hemiparesis G81.94 DM II (diabetes mellitus, type II), controlled E11.9 HTN (hypertension) I10 Dementia F03.90 Gouty arthritis of both ankles M10.9 Acute metabolic encephalopathy G93.41 MRSA colonization Z22.322 Hypoglycemia E16.2 Hypomagnesemia E83.42 Constipation K59.00 (1) Acute renal failure Acute renal failure type: unspecified Qualified Code(s): N17.9 - Acute kidney failure, unspecified (3) Aspiration pneumonia Aspiration pneumonia type: unspecified Laterality: unspecified laterality Lung location: unspecified part of lung Qualified Code(s): J69.0 - Pneumonitis due to inhalation of food and vomit
[2023-01-10] MEDS: QUEtiapine FUMARATE 25 MG TABLET PO SCH (20:45)
[2023-01-10] MEDS: QUEtiapine FUMARATE 100 MG TABLET PO SCH (20:45)
[2023-01-11] MEDS: INSULIN ASPART PER UNIT CHARGE SC SCH ×7 (00:07→23:32)
[2023-01-11] MEDS: PIPERACILLIN/TAZOBACTAM 4.5 GM in DEXTROSE 5% 100 ML IV SCH ×3 (05:34→21:51)
[2023-01-11] MEDS: MAGNESIUM OXIDE 400 MG TAB PO SCH ×2 (09:13→22:23)
[2023-01-11] MEDS: LINEZOLID 600 MG TAB PO SCH ×2 (09:13→22:23)
[2023-01-11] MEDS: PANTOprazole 40 MG TAB PO SCH ×2 (09:13→22:22)
[2023-01-11] MEDS: DIVALPROEX DELAY RELEASE 125 MG TABEC PO SCH ×3 (09:13→22:23)
[2023-01-11] MEDS: ASPIRIN 81 MG ECTAB PO SCH (09:13)
[2023-01-11] MEDS: METOPROLOL TARTRATE 25 MG TAB PO SCH ×2 (09:13→22:22)
[2023-01-11] MEDS: CLOPIDOGREL BISULFATE 75 MG TAB PO SCH (09:13)
[2023-01-11] MEDS: SENNA 8.6 MG TAB PO SCH (09:14)
--- NOTE | 2023-01-11 14:35 | Hospitalist Progress Note ---
Date of Service January 11, 2023 Assessment & Plan (1) Acute renal failure: Plan: Presenting Cr 12 with BUN of 179 MED/ARF likely combination of obstructive uropathy (severe urinary retention prior to kaba catheter insertion) as well as pre-renal factors Appears severely volume contracted on examination 2 L of urine output immediately following kaba placement Creatinine is rapidly improving with IV hydration & kaba placement No labs available today Nephrology was consulted; appreciate their assistance. Nephrology signed off creatinine trending down despite discontinuation of IV fluids Likely with BPH leading to urinary retention --> started flomax 0.4mg daily Continue to check labs in a.m. (2) Hyperkalemia: Plan: 2nd #1 - resolved with supportive care, fluids, etc aldactone use likely contributed as well (3) Aspiration pneumonia: Plan: By report pt had had vomiting episodes at [facility] CT a/p (lung cuts) show the b/l basilar infiltrates Cont zosyn MRSA screen is +; thus, use zyvox 600 BID for MRSA coverage will need to follow QTc carefully Patient had an episode of choking today speech on board (4) Sepsis: Plan: 2nd aspiration pneumonia cont abx as above blood cultures negative (5) High anion gap metabolic acidosis: Plan: 2nd acute renal failure and lactic acidosis Resolved (6) Hyponatremia: Plan: 2nd to ARF resolved lowest Na level was 131 upon ER presentation (7) Esophagitis: Plan: Noted on CT of the abd/pelvis PPI (8) Hx of arterial ischemic stroke: Plan: resume plavix cont asa both for secondary prevention (9) Left hemiparesis: Plan: 2nd to prior stroke cont asa for secondary stroke prevention (10) DM II (diabetes mellitus, type II), controlled: Plan: Novolog SSI add basal insulin if necessary A1c 6.6 (11) HTN (hypertension): Plan: HOLD all anti-hypertensives at this time aldactone likely exacerbated the hyperkalemia (12) Dementia: Plan: Continue Seroquel and TID Depakote (13) Gouty arthritis of both ankles: Plan: exam c/w acute gout - likely due to ARF was treated with prednisone during the hospital stay. Discontinue. (14) Acute metabolic encephalopathy: Plan: 2nd to pneumonia, ARF/uremia, etc. 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 3 times daily Patient had issues with SVT during this hospital stay. Continue metoprolol 12.5 mg p.o. twice daily. Recheck potassium and magnesium tomorrow (18) Constipation: Plan: add senna 2 tabs daily Plan Palliative care saw the patient. He is a DNR/DNI. Plan is to continue current treatment for now. However if condition declines, his POA and himself agreed to switching to comfort care. Plan is to discharge him back to where he came from. manager care working to find out if he can go back over the weekend. Admission and Anticipated Discharge Date Admission Date: January 06, 2023 Subjective Patient continues to do well. Denies any chest pain, shortness of breath. Does not have any major complaints. Review of Systems Review of Systems: All systems reviewed & are unremarkable except as noted in Subjective Physical Exam Physical Exam: General: Awake, conversant Heart: S1, S2/regular rate and rhythm, no murmur rubs or gallops Lungs: Clear to auscultation bilaterally. Normal effort Abdomen: Soft/nontender/nondistended. No hepatosplenomegaly. Kaba draining clear liquid Extremities: No clubbing/cyanosis. No edema Behavior: Appropriate, cooperative Results & Data Results & Data Vital Signs (Past 12 Hours) Vital Signs Temp Pulse Resp BP Pulse Ox O2 Del Method 01/11/23 11:45 36.6 C 62 19 126/66 95 Room Air 01/11/23 08:00 Room Air 01/11/23 07:59 36.8 C 63 21 121/72 95 Room Air 01/11/23 02:53 36.6 C 59 L 16 118/74 98 Room Air PG Care Time/CCT Total # of Minutes Spent Total Time Spent with Patient: Total time spent is greater than 50% in coordination of care (as documented) at patient's floor/unit and/or counseling patient: Coding Level of Care Code 57563 SUB INP/OBS CARE 2/35MIN Diagnoses Acute renal failure N17.9 Acute renal failure type: unspecified Hyperkalemia E87.5 Aspiration pneumonia J69.0 Aspiration pneumonia type: unspecified Laterality: unspecified laterality Lung location: unspecified part of lung Sepsis A41.9 High anion gap metabolic acidosis E87.29 Hyponatremia E87.1 Esophagitis K20.90 Hx of arterial ischemic stroke Z86.73 Left hemiparesis G81.94 DM II (diabetes mellitus, type II), controlled E11.9 HTN (hypertension) I10 Dementia F03.90 Gouty arthritis of both ankles M10.9 Acute metabolic encephalopathy G93.41 MRSA colonization Z22.322 Hypoglycemia E16.2 Hypomagnesemia E83.42 Constipation K59.00 (1) Acute renal failure Acute renal failure type: unspecified Qualified Code(s): N17.9 - Acute kidney failure, unspecified (3) Aspiration pneumonia Aspiration pneumonia type: unspecified Laterality: unspecified laterality Lung location: unspecified part of lung Qualified Code(s): J69.0 - Pneumonitis due to inhalation of food and vomit
[2023-01-11] MEDS: MAGNESIUM SULFATE / D5W 1 GM/100 ML BAG IV SCH ×4 (15:01→22:13)
[2023-01-11] MEDS: QUEtiapine FUMARATE 100 MG TABLET PO SCH (22:22)
[2023-01-11] MEDS: QUEtiapine FUMARATE 25 MG TABLET PO SCH (22:22)
[2023-01-12] MEDS: PIPERACILLIN/TAZOBACTAM 4.5 GM in DEXTROSE 5% 100 ML IV SCH ×2 (04:11→11:22)
[2023-01-12] MEDS: INSULIN ASPART PER UNIT CHARGE SC SCH ×6 (04:12→23:02)
[2023-01-12] MEDS: PANTOprazole 40 MG TAB PO SCH ×2 (08:45→21:25)
[2023-01-12] MEDS: METOPROLOL TARTRATE 25 MG TAB PO SCH ×2 (08:45→21:25)
[2023-01-12] MEDS: CLOPIDOGREL BISULFATE 75 MG TAB PO SCH (08:45)
[2023-01-12] MEDS: LINEZOLID 600 MG TAB PO SCH ×2 (08:45→21:25)
[2023-01-12] MEDS: DIVALPROEX DELAY RELEASE 125 MG TABEC PO SCH ×3 (08:45→21:25)
[2023-01-12] MEDS: MAGNESIUM OXIDE 400 MG TAB PO SCH ×3 (08:46→21:26)
[2023-01-12] MEDS: ASPIRIN 81 MG ECTAB PO SCH (08:46)
[2023-01-12] MEDS: SENNA 8.6 MG TAB PO SCH (08:47)
--- NOTE | 2023-01-12 13:48 | Hospitalist Progress Note ---
Date of Service January 12, 2023 Assessment & Plan (1) Acute renal failure: Plan: Presenting Cr 12 with BUN of 179 MED/ARF likely combination of obstructive uropathy (severe urinary retention prior to kaba catheter insertion) as well as pre-renal factors Appears severely volume contracted on examination 2 L of urine output immediately following kaba placement Creatinine improved with hydration & kaba placement No labs available today Nephrology was consulted; appreciate their assistance. Nephrology signed off creatinine trendeddown despite discontinuation of IV fluids Likely with BPH leading to urinary retention --> started flomax 0.4mg daily (2) Hyperkalemia: Plan: 2nd #1 - resolved with supportive care, fluids, etc aldactone use likely contributed as well (3) Aspiration pneumonia: Plan: By report pt had had vomiting episodes at [facility] CT a/p (lung cuts) show the b/l basilar infiltrates switch Zosyn to Augmentin. Last dose 01/14 MRSA screen is +; thus, use zyvox 600 BID for MRSA coverage . Last dose 01/15 will need to follow QTc carefully Patient had an episode of choking during the hospital stay speech on board (4) Sepsis: Plan: 2nd aspiration pneumonia cont abx as above blood cultures negative (5) High anion gap metabolic acidosis: Plan: 2nd acute renal failure and lactic acidosis Resolved (6) Hyponatremia: Plan: 2nd to ARF resolved lowest Na level was 131 upon ER presentation (7) Esophagitis: Plan: Noted on CT of the abd/pelvis PPI (8) Hx of arterial ischemic stroke: Plan: resume plavix cont asa both for secondary prevention (9) Left hemiparesis: Plan: 2nd to prior stroke cont asa for secondary stroke prevention (10) DM II (diabetes mellitus, type II), controlled: Plan: Novolog SSI add basal insulin if necessary A1c 6.6 (11) HTN (hypertension): Plan: HOLD all anti-hypertensives at this time aldactone likely exacerbated the hyperkalemia (12) Dementia: Plan: Continue Seroquel and TID Depakote (13) Gouty arthritis of both ankles: Plan: exam c/w acute gout - likely due to ARF was treated with prednisone during the hospital stay. Discontinued. (14) Acute metabolic encephalopathy: Plan: 2nd to pneumonia, ARF/uremia, etc. 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 3 times daily Patient had issues with SVT during this hospital stay. Continue metoprolol 12.5 mg p.o. twice daily. Recheck potassium and magnesium tomorrow (18) Constipation: Plan: now having loose stools Discontinue senna If continues to have loose stools despite discontinuation of senna, C. difficile will need to be checked. Plan Palliative care saw the patient. He is a DNR/DNI. Plan is to continue current treatment for now. However if condition declines, his POA and himself agreed to switching to comfort care. Plan is to discharge him back to where he came from. Patient may be able to go back to where he came from early next week Admission and Anticipated Discharge Date Admission Date: January 06, 2023 Subjective Per nurse, patient has had loose stools. Senna discontinued. Patient has no complaints. No chest pain, shortness of breath. Review of Systems Review of Systems: All systems reviewed & are unremarkable except as noted in Subjective Physical Exam Physical Exam: General: Awake, conversant Heart: S1, S2/regular rate and rhythm, no murmur rubs or gallops Lungs: Clear to auscultation bilaterally. Normal effort Abdomen: Soft/nontender/nondistended. No hepatosplenomegaly. Kaba draining clear liquid Extremities: No clubbing/cyanosis. No edema Behavior: Appropriate, cooperative Results & Data Results & Data Vital Signs (Past 12 Hours) Vital Signs Temp Pulse Resp BP Pulse Ox O2 Del Method 01/12/23 11:46 36.5 C 75 21 113/68 95 Room Air 01/12/23 08:00 Room Air 01/12/23 08:02 36.8 C 68 18 103/61 95 Room Air 01/12/23 02:46 36.8 C 69 16 105/66 95 Room Air PG Care Time/CCT Total # of Minutes Spent Total Time Spent with Patient: Total time spent is greater than 50% in coordination of care (as documented) at patient's floor/unit and/or counseling patient: Coding Level of Care Code 81007 SUB INP/OBS CARE 2/35MIN Diagnoses Acute renal failure N17.9 Acute renal failure type: unspecified Hyperkalemia E87.5 Aspiration pneumonia J69.0 Aspiration pneumonia type: unspecified Laterality: unspecified laterality Lung location: unspecified part of lung Sepsis A41.9 High anion gap metabolic acidosis E87.29 Hyponatremia E87.1 Esophagitis K20.90 Hx of arterial ischemic stroke Z86.73 Left hemiparesis G81.94 DM II (diabetes mellitus, type II), controlled E11.9 HTN (hypertension) I10 Dementia F03.90 Gouty arthritis of both ankles M10.9 Acute metabolic encephalopathy G93.41 MRSA colonization Z22.322 Hypoglycemia E16.2 Hypomagnesemia E83.42 Constipation K59.00 (1) Acute renal failure Acute renal failure type: unspecified Qualified Code(s): N17.9 - Acute kidney failure, unspecified (3) Aspiration pneumonia Aspiration pneumonia type: unspecified Laterality: unspecified laterality Lung location: unspecified part of lung Qualified Code(s): J69.0 - Pneumonitis due to inhalation of food and vomit
[2023-01-12] MEDS: AMOXICILLIN/CLAVULANATE 875 MG TAB PO SCH (16:41)
[2023-01-12] MEDS: QUEtiapine FUMARATE 25 MG TABLET PO SCH (21:25)
[2023-01-12] MEDS: QUEtiapine FUMARATE 100 MG TABLET PO SCH (21:25)
[2023-01-13] MEDS: INSULIN ASPART PER UNIT CHARGE SC SCH ×3 (06:21→13:44)
[2023-01-13] MEDS: MAGNESIUM OXIDE 400 MG TAB PO SCH ×2 (10:14→14:18)
[2023-01-13] MEDS: DIVALPROEX DELAY RELEASE 125 MG TABEC PO SCH ×2 (10:15→14:18)
[2023-01-13] MEDS: LINEZOLID 600 MG TAB PO SCH (10:16)
[2023-01-13] MEDS: AMOXICILLIN/CLAVULANATE 875 MG TAB PO SCH (10:18)
[2023-01-13] MEDS: CLOPIDOGREL BISULFATE 75 MG TAB PO SCH (10:18)
[2023-01-13] MEDS: PANTOprazole 40 MG TAB PO SCH (10:18)
[2023-01-13] MEDS: METOPROLOL TARTRATE 25 MG TAB PO SCH (10:19)
[2023-01-13] MEDS: ASPIRIN 81 MG ECTAB PO SCH (10:19)
--- NOTE | 2023-01-13 14:02 | Discharge Summary ---
Discharge Summary Date of Service January 13, 2023 Notes For Next Care Provider Needs Urology follow up for TOV vs eval for prostate surgery Medication Changes From Visit Discontinued spironolactone Started Flomax 0.4mg po hs Admission HPI Per Admitting Provider August is a 77 year old male with a PMG significant for DMII, previous CVA with left hemiparesis, dementia, HTN, anxiety,previous GI bleeds,and dysphagia who presented to the [facility] ED on 01/[address] [facility] for ongoing altered mental status. The patient presented to the ED on 01/05 with similar complaints and had been found to be hypoglycemic with BSG in the 30s by EMS. While in the ED he reportedly refused further lab draws and was very aggressive with ED staff. He was able to tolerate a diet and was discharged back to [facility]. In the ED the patient was noted to be hypotensive at but otherwise stable. Labs were significant for a leukocytosis of 14 with neutrophil predominance of 12, lymphocytosis of 0.25, cr of 12 (no previous baseline), potassium of 6.7, sodium of 131, AG of 20 with bicarb of 13, corrected calcium of 8.3, procal 5.56, UA with 3+ blood but otherwise unremarkable, and full respiratory biofire negative. Chest xray was read as Patchy left basilar densities which may represent atelectasis or pneumonia. This will be better appreciated on the same day abdomen and pelvis CT.. Ct of the head was read as Multiple old infarcts as described above. No definite acute intracranial abnormality.. CT of the abd/pelvis without con was read as "1. Multifocal bilateral airspace opacities with small bilateral pleural effusions. This likely represents a pneumonia and could be due to aspiration. 2. Small hiatus hernia with thickening of the distal esophagus suggestive of a nonspecific esophagitis. 3. The stomach is mildly distended. No evidence for gastric outlet obstruction. 4. No definite bowel wall thickening or obstruction. 5. Mild fullness within the bilateral renal collecting system without carlos hydronephrosis. The bladder is decompressed by a Kaba catheter. 6. Mild asymmetric thickening of the left iliacus muscle and comparison to the right. This likely represents the normal musculature. A small intramuscular hematoma is considered less likely but not entirely excluded. 7. Mild edematous change. 8. Additional findings as described above. Ct of the lumbar spine. Prior to admission the patient was given 1gm IV Tylenol, 1gm IV calcium gluconate, 5 units regular human insulin, 500 mL NSS, a dose of Zosyn, 4mg IV Zofran, and an albuterol treatment. At the time of the exam the patient was lying in bed in no acute distress. He states multiple times that he does not want any needles when asked how he is f eeling. He denies any complaints at this time and is unable to tell me why he was taken to the ED. He denies current chest pain, SOB, abd pain, nausea, vomiting, diarrhea, dysuria, hematuria, and recent falls. During discussions with the patient regarding recurrent lab draws and need for possible dialysis he was adamant that he would not want either. However, the patient was unable to explain back to me the acute problems I just explained to him and the risks/benefits of dialysis if needed after I just explained them. We were able to speak with the patient's Niece/POA (Sunitha Thacker) who explained that the patient is a DNR/DNI but he would want dialysis if needed. She confirmed that he has a fear of needles but would want treatment if the patient were controlled. Please refer to Dr. 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 Nephrology signed off Likely with BPH leading to urinary retention --> started flomax 0.4mg daily on day of discharge, Kaba to remain in and needs outpt Urology follow up for trial of void and eval for enlarged prostate (2) Hyperkalemia: 2nd #1 - resolved with supportive care, fluids, etc aldactone use likely contributed as well -permanently discontinued (3) Aspiration pneumonia: By report pt had had vomiting episodes at [facility] CT a/p (lung cuts) show the b/l basilar infiltrates Initially on Zosyn then switched to Augmentin. Last dose 01/15 MRSA screen is +; thus, use zyvox 600 BID for MRSA coverage . Last dose will be 01/15 Patient had an episode of choking during the hospital stay speech on board-see eval (4) Sepsis: 2nd aspiration pneumonia cont abx as above blood cultures negative (5) High anion gap metabolic acidosis: 2nd acute renal failure and lactic acidosis Resolved (6) Hyponatremia: 2nd to ARF resolved lowest Na level was 131 upon ER presentation (7) Esophagitis: Noted on CT of the abd/pelvis PPI (8) Hx of arterial ischemic stroke: resumed plavix cont asa both for secondary prevention (9) Left hemiparesis: 2nd to prior stroke cont asa for secondary stroke prevention (10) DM II (diabetes mellitus, type II), controlled: with hypoglycemia on admission A1c 6.6 no meds needed for this (11) HTN (hypertension): held all anti-hypertensives aldactone likely exacerbated the hyperkalemia and was stopped was started on metoprolol low dose (12) Dementia: Continue Seroquel and TID Depakote (13) Gouty arthritis of both ankles: exam c/w acute gout - likely due to ARF was treated with prednisone during the hospital stay. Discontinued. (14) Acute metabolic encephalopathy: 2nd to pneumonia, ARF/uremia, etc. this is in the setting of dementia as listed in his PMH treat acute issues supportive care cont seroquel resolved (15) MRSA colonization: MRSA LAB RN swab + (16) Hypoglycemia: present on admission likely due to stress of infection/illness, poor glycogen serves, etc BSGs normal since being fluid resuscitated, etc (17) Hypomagnesemia: replaced mag sulfate IV received mag oxide 400 mg p.o. 3 times daily but stopped as was causing a lot of loose stools and C. diff negative Patient had issues with SVT during this hospital stay. Continue metoprolol 12.5 mg p.o. twice daily. (18) Constipation: now having loose stools from senna and po magnesium C. diff negative Discontinued senna Plan Palliative care saw the patient. He is a DNR/DNI. Plan is to continue current treatment for now. However if condition declines, his POA and himself agreed to switching to comfort care. Plan is to discharge him back to where he came from. Discharge Exam Constitutional WD/WN, vitals as above Respiratory normal respiratory effort, lungs clear to auscultation Cardiovascular RRR, no murmur, no edema Gastrointestinal (Abdomen) normal bowel sounds, soft, nontender, no hepatosplenomegaly Genitourinary Kaba in place with clear yellow urine Updated Medication List Medication Instructions Recorded Confirmed Type Insta-Glucose See Rx Instructions .Route .COMPLEX 01/06/23 01/06/23 History Milk Of Magnesia Susp 1200mg/15ml See Rx Instructions .Route .COMPLEX 01/06/23 01/06/23 History acetaminophen 325 mg tablet 650 mg PO Q6H PRN Mild Pain (Scale 01/06/23 01/06/23 History Score 1-4) acetaminophen 325 mg tablet 650 mg PO Q6H PRN elevated temp 01/06/23 01/06/23 History albuterol sulfate 90 mcg/actuation 2 puff inhalation Q6H PRN 01/06/23 01/06/23 History aerosol inhaler shortness of breath aspirin 81 mg tablet,delayed 81 mg PO DAILY 01/06/23 01/06/23 History release atorvastatin 20 mg tablet 20 mg PO DAILY 01/06/23 01/06/23 History bisacodyl 10 mg rectal suppository See Rx Instructions .Route 01/06/23 01/06/23 History .COMPLEX PRN Constipation clopidogrel 75 mg tablet 75 mg PO DAILY 01/06/23 01/06/23 History divalproex 125 mg tablet,delayed 125 mg PO TID 01/06/23 01/06/23 History release escitalopram oxalate 10 mg tablet 10 mg PO DAILY 01/06/23 01/06/23 History ferrous sulfate 325 mg (65 mg 325 mg PO QAM 01/06/23 01/06/23 History iron) tablet glucagon HCl 1 mg solution for See Rx Instructions .Route .COMPLEX 01/06/23 01/06/23 History injection (Glucagon (HCl) Emergency Kit) glucagon HCl 1 mg solution for See Rx Instructions .Route .COMPLEX 01/06/23 01/06/23 History injection (Glucagon (HCl) Emergency Kit) hydroxyzine pamoate 25 mg capsule 50 mg PO Q24H PRN Anxiety 01/06/23 01/06/23 History pantoprazole 40 mg tablet,delayed 40 mg PO BID 01/06/23 01/06/23 History release quetiapine 25 mg tablet 100 mg PO HS 01/06/23 01/06/23 History quetiapine 50 mg tablet 50 mg PO HS 01/06/23 01/06/23 History sodium phosphates 19 gram-7 See Rx Instructions .Route .COMPLEX 01/06/23 01/06/23 History gram/118 mL enema (Enema) amoxicillin 875 mg-potassium 1 tab PO BIDM #3 tabs 01/13/23 Rx clavulanate 125 mg tablet linezolid 600 mg tablet 600 mg PO BID #3 tabs 01/13/23 Rx metoprolol tartrate 25 mg tablet 12.5 mg PO BID #30 tabs 01/13/23 Rx tamsulosin 0.4 mg capsule (Flomax) 0.4 mg PO HS #30 caps 01/13/23 Rx Hospital Stay Data Consultations 01/06/23 10:18 ED Decision to Admit Stat 01/06/23 12:21 Consult Nephrology Routine 01/09/23 17:26 Consult Palliative Care Routine Diagnostic Imagining Performed 01/06/23 07:45 CT lumbar spine wo con Stat 01/06/23 08:03 CT head/brain wo con Stat 01/06/23 08:17 CT abd pelvis wo con Stat Pending Results Patient Have Any Pending Studies at Discharge: No Discharge Instructions Given to Patient (Per Discharging Provider) Please keep Kaba catheter in place and you will need an appointment with Urology within 2 weeks for your enlarged prostate. Please finish out 2 more days of the antibiotics for your pneumonia and have a repeat chest xray in 4 weeks to ensure the pneumonia has cleared up. Total Time Total Time Spent Total Time Spent (In Minutes): 40 min Coding Level of Care Code 30156 INP/OBS DISCH >30 MIN Diagnoses Acute renal failure N17.9 Acute renal failure type: unspecified Hyperkalemia E87.5 Aspiration pneumonia J69.0 Aspiration pneumonia type: unspecified Laterality: unspecified laterality Lung location: unspecified part of lung Sepsis A41.9 High anion gap metabolic acidosis E87.29 Hyponatremia E87.1 Esophagitis K20.90 Hx of arterial ischemic stroke Z86.73 Left hemiparesis G81.94 DM II (diabetes mellitus, type II), controlled E11.9 HTN (hypertension) I10 Dementia F03.90 Gouty arthritis of both ankles M10.9 Acute metabolic encephalopathy G93.41 MRSA colonization Z22.322 Hypoglycemia E16.2 Hypomagnesemia E83.42 Constipation K59.00
--- NOTE | 2023-01-13 14:31 | Palliative Care Progress Note ---
Date of Service January 13, 2023 Assessment & Plan (1) Palliative care encounter: Plan: Mr. Maynard has consistently said that he does not want "any needles". We have discussed concern that his conditions cannot be optimally managed without labs and sometimes IV medications. He has been refusing BG checks which makes managing his diabetes problematic. He is adamant that even if he dies, he does not want any needles. His niece, and POA, Sunitha Thacker, tells me that this is consistent with what he has said in the past. She feels that he has given up and is ready to . Plan is to continue current care for the time being, if he declines or has further problems, focus of care would be comfort and symptom management. He will be returning to [facility] today and likely moving to [place] in [place] when a bed is available. I reviewed POLST form with Sunitha over the phone and form was completed per our discussion, consistent with August's wishes. Sunitha will review POLST at [facility] and sign at that time. He is DNR/DNI, comfort measures, oral antibiotics only. Discussed with Dr. Shelton and case management Admission and Anticipated Discharge Date Admission Date: January 06, 2023 Subjective No complaints. Sitting at bedside in chair. Review of Systems Review of Systems: ESAS Pain 0/3 Dyspnea 0/3 Nausea 0/3 Drowsiness 0/3 Physical Exam Constitutional: no acute distress Respiratory: normal respiratory effort; no labored breathing Genitourinary: A[place]illo catheter Results & Data Vital Signs (Past 12 Hours) Vital Signs Temp Pulse Resp BP Pulse Ox O2 Del Method 01/13/23 12:01 98.4 F 76 18 135/80 96 Room Air 01/13/23 08:10 98.1 F 76 18 103/62 94 Room Air 01/13/23 03:10 97.3 F L 76 18 101/64 95 Room Air PG Care Time/CCT Total # of Minutes Spent Total Time Spent with Patient: Total time spent is greater than 50% in coordination of care (as documented) at patient's floor/unit and/or counseling patient: Coding Level of Care Code 99398 SUB INP/OBS CARE 2/35MIN Diagnoses Palliative care encounter Z51.5
== END 2023-01-13 15:42 | DRG 871 ==
LOC: ED 07:26 → SUATTDRO 11:11 → EDINP 11:11 → 4W 21:17